=== PATIENT | male | born 1950 | race Caucasian/White ===

== ENCOUNTER 2021-02-18 00:45 | Emergency (ER) | payer MEDICARE, BC, SELFPAY ==
--- NOTE | ~2021-02-18 | XR_ITS ---
EXAMINATION: XR knee RT min 4V DATE: 02/18/2021 01:11 INDICATION: Right knee pain. TECHNIQUE: 4 views of right knee were obtained. COMPARISON: None. FINDINGS: Bone alignment is normal. No fracture. There is mild tricompartmental osteoarthritis. There is a large knee joint effusion. IMPRESSION: 1. Mild right knee osteoarthritis. 2. Large knee joint effusion. Reviewed, dictated and finalized at location A.
[2021-02-18] MEDS: LIDOCAINE HCL 1% LOCAL INJ 20 ML VIAL (01:35)
[2021-02-18 01:46] VITALS: BP 121/98; PULSE 63; RESP 16; TEMP 36.7; O2SAT 97
[2021-02-18] MEDS: KETOROLAC 30 MG/ML VIAL (*BKC) IM (01:47)
--- NOTE | 2021-02-18 02:01 | ED.GENADULT ---
HPI - General Adult General Chief complaint: Extremity Injury, Lower Stated complaint: RIGHT KNEE PAIN Source: patient and family Mode of arrival: ambulatory Limitations: no limitations History of Present Illness HPI narrative: Miles is a 70M with a PMH of COPD, Afib, HLD, BPH and previous knee fracture many years ago that presented to the ED with right knee pain and swelling. Earlier in the day turned and barely twisted his knee but had immediate pain. The pain and swelling have become worse throughout the day. He had no other injuries, fevers, or chills. Related Data Home Medications Medication Instructions Recorded Confirmed apixaban [Eliquis] 5 mg PO BID 02/18/21 02/18/21 fluticasone propionate 1 spray INTRANASAL PRN 02/18/21 02/18/21 levocetirizine 5 mg PO DAILY 02/18/21 02/18/21 lisinopril-hydrochlorothiazide 0.5 tablet PO DAILY 02/18/21 02/18/21 magnesium oxide 400 mg PO BID 02/18/21 02/18/21 nebivolol [Bystolic] 5 mg PO DAILY 02/18/21 02/18/21 simvastatin 20 mg PO DAILY 02/18/21 02/18/21 tamsulosin 0.4 mg PO DAILY 02/18/21 02/18/21 tiotropium-olodaterol [Stiolto 2 spray INHALATION DAILY 02/18/21 02/18/21 Respimat] Allergies Allergy/AdvReac Type Severity Reaction Status Date / Time No Known Allergies Allergy Verified 02/18/21 02:00 Review of Systems Constitutional: Constitutional: Reports no additional constitutional complaints, Denies chills and Denies fever(s) Eyes: Eyes: Reports no additional eye complaints ENT: Reports system reviewed and no additional complaints, except as documented Cardiovascular: Cardiovascular: Reports no additional cardiovascular complaints Respiratory: Respiratory: Reports no additional respiratory complaints Gastrointestinal: Gastrointestinal: Reports no additional gastrointestinal complaints Genitourinary: Genitourinary: Reports no additional male genitourinary complaints Musculoskeletal: Musculoskeletal: Reports as per HPI Integumentary/Breasts: Skin/Breast: Reports system reviewed and no additional complaints, except as docu Neurologic: Reports system reviewed and no additional complaints, except as documented Psychiatric: Psychiatric: Reports no additional psychiatric complaints Endocrine: Endocrine: Reports no additional endocrine complaints Hematologic/Lymphatic: Hematologic/Lymphatic: Reports no additional hematologic/lymphatic complaints Allergic/Immunologic: Allergic/Immunologic: Reports no additional allergic/immunologic complaints Exam Const: General: no acute distress and alert Orientation/consciousness: patient oriented x3 Limitations: No altered mental status HENMT: Head: normal to inspection Other: atraumatic Eyes: Conjunctivae: conjunctivae normal Pupils: Equal, round and reactive pupils present Neck: Neck: normal visual inspection and no lymphadenopathy Chest: Chest palpation & inspection: normal inspection of the chest Resp: Effort & Inspection: normal respiratory effort Cardio: Rate: regular rate Skin: General skin exam: normal color Rashes: no rashes Neuro: General: patient oriented x3, moves all extremities, no focal motor deficits and CN's II-XI intact bilaterally Extrem: Other: Right knee was very swollen and TTP. It had a large ballotable effusion. No varus/valgus laxity. Negative anterior/posterior drawer test. Psych: Mental Status: mental status grossly normal Course Vital Signs Vital signs: Vital Signs Temperature 98.0 F 02/18/21 01:46 Pulse Rate 63 02/18/21 01:46 Respiratory Rate 16 02/18/21 01:46 Blood Pressure 121/98 H 02/18/21 01:46 Pulse Oximetry 97 02/18/21 01:46 Temperature 98.0 F 02/18/21 01:46 Pulse Rate 63 02/18/21 01:46 Respiratory Rate 16 02/18/21 01:46 Blood Pressure 121/98 H 02/18/21 01:46 Pulse Oximetry 97 02/18/21 01:46 Procedures Joint Aspiration/Injection Joint Asp./Inject. 1: Joint Aspiration Date: 02/18/21 Side of body: right Micaela
[2021-02-18 02:05] VITALS: BP 120/89; PULSE 80; RESP 20; O2SAT 98
== END 2021-02-18 02:10 | disposition home or self-care (01) ==
PROVIDERS: Emergency Provider Family Medicine
DX: M25.461 Effusion, right knee (principal)
CPT/HCPCS: 20610; 73564; 96372; 99283; J1885

== ENCOUNTER 2021-03-08 09:42 | Outpatient (RCR) | payer MEDICARE, BC, SELFPAY ==
--- NOTE | 2021-03-08 11:01 | PTOPEVAL ---
Thank you for referring Miles Escamilla to [facility].? The patient is scheduled to be seen for therapy? ____x/week for ___ weeks. Please review, sign, date and return this plan of care ISAEL. I agree with and certify that the following plan of care is medically necessary. Referring Physician Date Admitting Provider: Attending Provider: Kory Edwards, MD Referring Provider: *PT Outpatient Evaluation Start: 03/08/21 07:01 Freq: Status: Active Protocol: Document 03/08/21 09:54 ACR (Rec: 03/08/21 11:01 ACR [id number]) Therapy Assessment Status Assessment Status Assessment Status Evaluation Evaluation Information Problem Diagnosis R knee hematoma Onset 02/15/21 Subjective Information Patient states that he was Query Text:As Reported By Patient/ washing his hands and stepped Family out to the side and heard a loud pop. He states it has gotten progressively worse and went to the ER that night and got 120 cc's of fluid removed and then went to the the MD and got another 80 cc's removed due to all of the swelling. The patient states he is unable to go up and down the stairs or walk for long distances. He states that sometimes his knee feels like it could buckle on him. Patient states that his biggest complaint is not being able to bend his knee. Prior Level of Function Activity Level (Last 3 Months) Occupation retired Hand Dominance Right Activity of Daily Living Ability Independent Indoor/Home Mobility Independent Community Mobility Independent Stairs Ability Independent Functional Cognition (Planning, Shopping Independent , Taking Medications) Cooking Yes Cleaning Yes Laundry Yes Shopping Yes Driving Yes Pain Assessment Timing of Pain Assessment Timing of Pain Assessment Assessment Pain Scale Pain Scale Used Numeric (1 - 10) Self Report Pain Assessment Right Knee(s) Reported Pain Level 0 Greatest Pain Intensity 10 Pain Score Pain Score 0: Self Report Interventions Used Interventions Used By Clinicians Activity or ADL's,Education,
--- NOTE | 2021-04-01 07:56 | PCPTNOTE ---
Patient is a 70 year old male that participated in 2 visits for R knee hematoma. The patient called and would like to be discharged at this time due to his pain. Please refer to the most recent treatment note for discharge summary. Thank you, Junie Nino DPT
== END 2021-03-10 09:19 | disposition home or self-care (01) ==
LOC: CHSPT 09:42
PROVIDERS: Visit Provider Orthopaedic Surgery
DX: S80.01XA Contusion of right knee, initial encounter (principal)
CPT/HCPCS: 97016; 97110; 97161

== ENCOUNTER 2021-08-02 08:56 | Emergency (ER) | payer MEDICARE, SELFPAY ==
--- NOTE | ~2021-08-02 | XR_ITS ---
EXAMINATION: XR chest 1V portable EXAM DATE: 08/02/2021 09:33 INDICATION: Left-sided chest pain, cough, dyspnea on exertion. COPD. TECHNIQUE: Portable AP frontal chest x-ray was obtained. Comparison is made to prior examination from 11/04/16. FINDINGS: There is a dual lead pacemaker/AICD seen with leads projecting over the expected locations of the right atrial appendage and right ventricle. The lungs are hyperinflated which can be seen wit h chronic obstructive pulmonary disease (a clinical diagnosis of functional impairment), but is not d iagnostic of it. Cardiomegaly, pulmonary vascular congestion. Some prominent basilar reticulation which was not eviden t on prior study, could indicate pulmonary edema. Possible CHF exacerbation. No sizable pleural effus ion. No pneumothorax. There are bony degenerative changes. IMPRESSION: 1. Cardiomegaly, congestion and prominent basilar reticulation which could be pulmonary edema. CHF? 2. Chronic hyperinflation. Reviewed, dictated and finalized at location A.
--- NOTE | ~2021-08-02 | CT_ITS ---
EXAMINATION: CT diagnostic chest wo con DATE: 08/02/2021 10:22 INDICATION: chest pain, CHF? CHEST PAIN TECHNIQUE: Computed tomography (CT) of the chest was performed without intravenous contrast. Addition al 3D reconstructions utilizing coronal maximum intensity projection (MIP) were performed. Automated exposure control and iterative reconstruction technique were employed. The dose-length product was 27 0.41 mGy-cm. COMPARISON: None FINDINGS: Moderate emphysema. Smooth septal line thickening and mild groundglass opacities at the bilateral parvez g bases consistent with mild pulmonary edema. Calcified right lower lobe nodules consistent with old granulomatous disease. No pneumonia, pleural effusion or pneumothorax. Mild cardiomegaly. No pericard ial effusion. There is chronic coronary artery calcific location. Aortic valve calcification. Dual-le ad cardiac pacemaker with lead tips at the right atrium and apex of the right ventricle. Thoracic aor ta is normal in caliber. No pathologically enlarged thoracic lymphadenopathy. Moderate thoracic spond ylosis. IMPRESSION: 1. Congestive heart failure with cardiomegaly and mild pulmonary edema at the lung bases. 2. Moderate emphysema. Reviewed, dictated and finalized at location A. IMPRESSION: 1. Congestive heart failure with cardiomegaly and mild pulmonary edema at the l samantha bases. 2. Moderate emphysema.
[2021-08-02 08:56] VITALS: BP 156/98; PULSE 63; RESP 18; TEMP 36.6; O2SAT 99
--- NOTE | 2021-08-02 08:59 | ECG_ITS ---
Measurements Intervals [place] Rate: 65 P: GA: 0 QRS: -77 QRSD: 190 T: 102 QT: 496 QTc: 519 Interpretive Statements ELECTRONIC VENTRICULAR PACEMAKER ATRIAL AND VENTRICULAR PREMATURE COMPLEXES BASELINE ARTIFACT- I, II, III, AVR, AVL, AVF NO FURTHER INTERPRETATION IS POSSIBLE BORDERLINE ECG Electronically Signed On 08-02-2021 14:49:55 CDT by Velasquez Nava D.O.
[2021-08-02 09:00] VITALS: PULSE 63
[2021-08-02 09:12] LABS: Basophils Absolute Auto 0.03 K/mm3 (0.00-0.10); Basophils Percent Auto 0.4 % (0.0-1.0); Eosinophils Absolute Auto 0.04 K/mm3 (0.02-0.50); Eosinophils Percent Auto 0.6 % (1.0-6.0); Hematocrit 46.8 % (37.0-46.0); Hemoglobin 15.4 g/dL (12.4-15.3); Immature Granulocyte Absolute 0.07 K/mm3 (0.00-0.00); Lymphocytes Absolute Auto 1.37 K/mm3 (1.10-4.50); Lymphocytes Percent Auto 19.2 % (18.0-42.0); Mean Corpuscular HGB Conc 32.9 g/dL (32.0-36.0); Mean Corpuscular Volume 91.1 fL (78.0-102.0); Mean Platelet Volume 9.8 fl (8.7-11.0); Monocytes Percent Auto 8.4 % (2.0-11.0); Neutrophils Percent Auto 70.4 % (50.0-70.0); Platelet Count Result 172 K/mm3 (150-420); Red Blood Count 5.14 M/mm3 (4.70-6.10); Red Cell Distribution Width 14.7 % (11.6-14.4); White Blood Count 7.2 K/mm3 (4.8-10.8)
[2021-08-02] MEDS: NITROGLYCERIN SL 0.4 MG TABLET SUBLINGUAL (09:23)
[2021-08-02] MEDS: ASPIRIN 325 MG ENTERIC TABLET PO (09:23)
[2021-08-02 09:31] LABS: Lactic Acid Reflex 1.2 mmol/L (0.4-2.0)
[2021-08-02 09:35] LABS: Alanine Aminotransferase 33 U/L (16-63); Albumin Level 4.4 g/dL (3.4-5.0); Alkaline Phosphatase 73 U/L (46-116); Anion Gap 10 mmol/L (8-16); Aspartate Amino Transferase 27 U/L (15-37); Bilirubin,Total 1.1 mg/dL (0.00-1.00); Blood Urea Nitrogen 14 mg/dL (7-18); Calcium 9.4 mg/dL (8.5-10.1); Carbon Dioxide 28 mmol/L (21-32); Chloride 105 mmol/L (98-108); Estimated Glomerular Filt Rate > 60; Glucose 105 mg/dL (70-99); NT Pro B Type Natriuretic Pept 5808 pg/mL (0-125); Osmolality Calculated 296 mOsm/kg (285-295); Potassium 4.2 mmol/L (3.5-5.1); Sodium 143 mmol/L (136-145); Total Protein 7.2 g/dL (6.4-8.2)
--- NOTE | 2021-08-02 09:44 | ED.CHESTPAIN ---
HPI - Chest Pain General Chief Complaint: Chest Pain Stated Complaint: CHEST PAIN Time Seen by Provider: 08/02/21 08:59 Source: patient, family and RN notes reviewed Mode of arrival: ambulatory Limitations: no limitations History of Present Illness complaint: chest pain Pertinent past history: other (pacemaker for atrial fibrillation; known COPD) Onset (ago): hour(s) (4) Timing of current episode: constant Prior episodes: Yes Onset: during rest Pain location: left chest Pain radiation: none Severity: moderate Pain scale (0-10): 8 Quality: aching and dull Relieving factors: nothing Exacerbating factors: nothing Associated symptoms: dyspnea Treatment prior to arrival: none Risk Factors Coronary artery disease risk factors: smoking history and hypertension Thoracic aortic dissection risk factors: longstanding hypertension Related Data Home Medications Medication Instructions Recorded Confirmed apixaban [Eliquis] 5 mg PO BID 02/18/21 08/02/21 fluticasone propionate 1 spray INTRANASAL PRN 02/18/21 08/02/21 levocetirizine 5 mg PO DAILY 02/18/21 08/02/21 lisinopril-hydrochlorothiazide 0.5 tablet PO DAILY 02/18/21 08/02/21 magnesium oxide 400 mg PO BID 02/18/21 08/02/21 nebivolol [Bystolic] 5 mg PO DAILY 02/18/21 08/02/21 simvastatin 20 mg PO DAILY 02/18/21 08/02/21 tamsulosin 0.8 mg PO DAILY 02/18/21 08/02/21 tiotropium-olodaterol [Stiolto 2 spray INHALATION DAILY 02/18/21 08/02/21 Respimat] albuterol sulfate [Ventolin HFA] 2 puff INHALATION QID PRN 08/02/21 08/02/21 multivit with min-folic acid 1 tablet PO DAILY 08/02/21 08/02/21 [Adult One Daily Multivitamin] Allergies Allergy/AdvReac Type Severity Reaction Status Date / Time No Known Allergies Allergy Verified 02/18/21 02:00 Review of Systems Review of Systems: All systems reviewed & are unremarkable except as noted in HPI and below Cardiovascular: Cardiovascular: Reports chest pain PMFSH Past Medical History Medical History Atrial fibrillation Exam Const: General: no acute distress and alert Nutritional Appearance: well nourished Orientation/consciousness: patient oriented x3 HENMT: Head: normal to inspection Ears: external ears normal and TM's normal bilaterally General nose exam: Normal external nose present and Normal nares present Mouth: Yes moist mucous membranes Throat: posterior oropharynx normal Eyes: Conjunctivae: conjunctivae normal Pupils: Equal, round and reactive pupils present EOM: EOMs intact bilaterally Neck: Neck: normal visual inspection and no lymphadenopathy Chest: Chest palpation & inspection: normal inspection of the chest Resp: Effort & Inspection: normal respiratory effort Auscultation: crackles and rhonchi Cardio: Rate: regular rate Rhythm: regular rhythm GI: Auscultation: normal bowel sounds : General: Yes bladder normal to palpation and Yes no CVA tenderness Male General Exam: Yes normal external exam Testes: Testes normal Back/Spine/Pelvis: Back: no CVA tenderness Skin: General skin exam: normal color Rashes: no rashes Neuro: General: patient oriented x3, moves all extremities, no meningeal signs, no focal motor deficits and CN's II-XI intact bilaterally Cranial nerves: Yes Nystagmus not present Extrem: General: normal to inspection and no pedal edema Psych: Mental Status: mental status grossly normal Course Course Emergency Course: Pt had less chest pain. Reevaluation(s) Date: 08/02/21 Time: 09:51 Vital Signs Vital signs: Vital Signs Temperature 36.6 C 08/02/21 08:56 Pulse Rate 63 08/02/21 08:56 Respiratory Rate 18 08/02/21 08:56 Blood Pressure 156/98 H 08/02/21 08:56 Pulse Oximetry 99 08/02/21 08:56 Temperature 36.6 C 08/02/21 08:56 Pulse Rate 60 08/02/21 10:49 Respiratory Rate 18 08/02/21 10:49 Blood Pressure 156/98 H 08/02/21 08:56 Pulse Oximetry 99 08/02/21 10:49 [facility] - Chest Pa
[2021-08-02 10:40] VITALS: PULSE 60; RESP 18; O2SAT 99
[2021-08-02] MEDS: ALBUTEROL SULFATE (*SP) INHALER 2 PUFF INHALATION (10:45)
[2021-08-02] MEDS: FUROSEMIDE INJ 100 MG/10 ML VIAL 80 MG IV PUSH (10:45)
[2021-08-02 10:49] VITALS: PULSE 60; RESP 18; O2SAT 99
[2021-08-02 11:30] LABS: Troponin I 16.4 ng/L (0.00-60.4)
--- NOTE | 2021-08-02 11:39 | PC.NURSE ---
patient tobacco dipper, Dr. Ya, contacted for consult at this time. Awaiting call back
--- NOTE | 2021-08-02 11:41 | PC.NURSE ---
call out to patients creative manager Dr Ya at 11:35
--- NOTE | 2021-08-02 12:21 | PC.NURSE ---
cardiology return call at this time, spoke with AMRIT Haq
[2021-08-02 12:44] VITALS: BP 156/93; PULSE 63; RESP 17; O2SAT 97
== END 2021-08-02 12:50 | disposition home or self-care (01) ==
PROVIDERS: Emergency Provider Emergency Medicine; PCP Physician Assistant
DX: I50.41 Acute combined systolic (congestive) and diastolic (congestive) heart failure (principal); R07.9 Chest pain, unspecified
CPT/HCPCS: 36415; 71045; 71250; 80053; 83605; 83880; 84484; 85025; 93005; 96374; 99283; 99284; A9270; J1940

== ENCOUNTER 2022-07-19 15:36 | Outpatient (RCR) | payer MEDICARE, SELFPAY | END 2022-08-18 13:15 | disposition home or self-care (01) | DX: J44.9 Chronic obstructive pulmonary disease, unspecified (principal) | CPT/HCPCS: 94625 ==

== ENCOUNTER 2022-12-28 09:23 | Outpatient (CLI) | payer MEDICARE, SELFPAY ==
--- NOTE | ~2022-12-28 | CT_ITS ---
EXAMINATION: CT sinus wo con DATE: 12/28/2022 09:58 INDICATION: Nasal drip. Chronic sinusitis. TECHNIQUE: Computed tomography (CT) of the paranasal sinuses was performed without contrast. Iterativ e reconstruction technique was employed. Exam dose: 293.24 mGy-cm total exam DLP. COMPARISON: None FINDINGS: There is leftward bowing of the anterior portion of the nasal septum and rightward bowing o f the more posterior aspect. There is sheela bullosa and intralamellar cell of both middle nasal turbinates. Bilateral nasal turbi dasia soft tissue swelling. There is soft tissue thickening at the maxillary ostium bilaterally. There is mild soft tissue thicke latoya of the left infundibulum. There is mild mucosal periosteal thickening in the inferomedial frontal sinuses. There is mild soft t issue thickening of the ethmoid air cells and minimal mucoperiosteal thickening of the maxillary sinu ses. The sphenoid sinuses are clear. No air-fluid levels are noted within the paranasal sinuses. The mastoid air cells are normally developed and aerated bilaterally. IMPRESSION: Nasal septal bowing leftward anteriorly and rightward posteriorly Bilateral middle nasal turbinate sheela bullosa and intralamellar cell Bilateral maxillary ostium soft tissue thickening, mild soft tissue thickening of left infundibulum Mild mucoperiosteal thickening of the inferomedial frontal sinuses, ethmoid air cells and maxillary s inuses Reviewed, dictated and finalized at Location [facility]. Reviewed, dictated and finalized at location B. OWS ADMIN IMPRESSION: Nasal septal bowing leftward anteriorly and rightward posteriorly Bilateral middle nasal turbinate sheela bullosa and intralamellar cell Bilateral maxillary ostium soft tissue thickening, mild soft tissue thickening of left infundibulum Mild mucoperiosteal thickening of the inferomedial frontal sinuses, ethmoid air cells and maxillary sinuses
== END 2022-12-28 09:24 | disposition home or self-care (01) ==
LOC: CHSIMG 09:25
PROVIDERS: PCP Physician Assistant
DX: J34.89 Other specified disorders of nose and nasal sinuses (principal); J34.2 Deviated nasal septum; J32.8 Other chronic sinusitis
CPT/HCPCS: 70486

== ENCOUNTER 2023-04-16 13:52 | Emergency (ER) | payer MEDICARE, SELFPAY ==
[2023-04-16] VITALS (10 sets, daily range): BP systolic 142–151; BP diastolic 85–107; PULSE 60–63; RESP 16–20; TEMP 36.6; O2SAT 95–98
--- NOTE | ~2023-04-16 | CT_ITS ---
EXAMINATION: CT brain wo con DATE: 04/16/2023 14:03 INDICATION: Slurred speech, left hemiparesis TECHNIQUE: Computed tomography (CT) of the head was performed without intravenous contrast. The mA wa s adjusted according to patient size. Iterative reconstruction technique was employed. Exam dose: 68 1.00 mGy-cm total exam DLP. COMPARISON: None FINDINGS: There is intracranial cerebral atherosclerosis. There is nonspecific diminished attenuation of the cerebral white matter, likely due to chronic small vessel ischemic changes. No intracranial mass lesion or hemorrhage, midline shift or mass effect is evident. No subdural or epidural hematoma. The paranasal sinuses and mastoid air cells are normally developed and aerated. No fracture or bone destruction of the cranial vault. IMPRESSION: Cerebral atherosclerosis and chronic small vessel ischemic changes of the cerebral white matter No acute intracranial finding Dr. Borjas telephoned the report on 04/16/2023 [address] Mehta at the emergency room Reviewed, dictated and finalized at Location [facility]. Reviewed, dictated and finalized at location A.
--- NOTE | 2023-04-16 13:56 | ED.AMS ---
HPI - Altered Mental Status General Stated Complaint: stroke Time Seen by Provider: 04/16/23 13:56 Source: patient and EMS Mode of arrival: EMS Limitations: language barrier and altered mental status History of Present Illness HPI narrative: patient was well before taking a nap at noon time he woke up 15 20 minutes ago with slurred speech left facial weakness and flaccid left side. Brought by EMS. Blood sugar was normal blood pressure 176/50 pacemaker be 68 beats per minute O2 sat on room air 92-94% history of COPD and hypertension. Has a history of AAA which was repaired. History of AFib on Eliquis and has been taking this regularly. no history of strokes in the past. patient was previously well without any complaints. Patient denies any chest pain or difficulty breathing. Denies any pain. denies any rash or itching shortness of breath any pain nausea vomiting problems eating or drinking stooling or voiding Related Data Home Medications Medication Instructions Recorded Confirmed apixaban 5 mg tablet (Eliquis) 5 mg PO BID 02/18/21 08/02/21 fluticasone propionate 50 1 spray intranasal PRN 02/18/21 08/02/21 mcg/actuation nasal spray,suspension levocetirizine 5 mg tablet 5 mg PO DAILY 02/18/21 08/02/21 lisinopril 20 0.5 tablet PO DAILY 02/18/21 08/02/21 mg-hydrochlorothiazide 12.5 mg tablet magnesium oxide 400 mg (241.3 mg 400 mg PO BID 02/18/21 08/02/21 magnesium) tablet nebivolol 2.5 mg tablet (Bystolic) 5 mg PO DAILY 02/18/21 08/02/21 simvastatin 20 mg tablet 20 mg PO DAILY 02/18/21 08/02/21 tamsulosin 0.4 mg capsule 0.8 mg PO DAILY 02/18/21 08/02/21 tiotropium 2.5 mcg-olodaterol 2.5 2 spray inhalation DAILY 02/18/21 08/02/21 mcg/actuation mist for inhalation (Stiolto Respimat) albuterol sulfate 90 mcg/actuation 2 puff inhalation QID PRN 08/02/21 08/02/21 aerosol inhaler (Ventolin HFA) Shortness Of Breath multivitamin with minerals-folic 1 tablet PO DAILY 08/02/21 08/02/21 acid 0.4 mg tablet Allergies Allergy/AdvReac Type Severity Reaction Status Date / Time No Known Allergies Allergy Verified 02/18/21 02:00 Review of Systems Review of Systems: All systems reviewed & are unremarkable except as noted in HPI and below ( HPI) PMFSH Past Medical History Medical History Atrial fibrillation Exam Const: General: alert Nutritional Appearance: well nourished Orientation/consciousness: patient oriented x3 Limitations: physical limitations Other: Slurred speech HENMT: Head: normal to inspection Ears: external ears normal Other: left facial droop Eyes: EOM: EOM not intact bilaterally ( eyes deviated to the right) Neck: Neck: normal visual inspection, no lymphadenopathy and no meningeal signs Chest: Chest palpation & inspection: normal inspection of the chest Resp: Effort & Inspection: normal respiratory effort Cardio: Rate: regular rate Rhythm: regular rhythm Heart sounds: no murmurs GI: Inspection: non-distended GI Palp: Yes Soft to palpation, No Tenderness to palpation present (GI), No Guarding due to palpation present (GI) and No Rigid due to palpation Auscultation: normal bowel sounds Back/Spine/Pelvis: Back: no CVA tenderness Skin: General skin exam: normal color Rashes: no rashes Wounds: no wounds Neuro: Other: rightward gaze rightward head tilt dense left hemiparesis left-sided weakness. Inattention the left side. NIH scale 19 on admission Extrem: General: normal to inspection Psych: Mental Status: mental status grossly normal Affect: normal affect Attitude: cooperative MDM - Altered Mental Status MDM Narrative Medical decision making narrative: Independent Historian: EMS Differential Dx includes but not limited to: stroke TIA Medications were Reviewed: patient is on Eliquis Medications, treatment, ED course: Independently Interpreted by me: CT the head without contrast show
--- NOTE | 2023-04-16 13:58 | ECG_ITS ---
Measurements Intervals [place] Rate: 62 P: MD: 0 QRS: -80 QRSD: 162 T: 103 QT: 466 QTc: 476 Interpretive Statements ELECTRONIC VENTRICULAR PACEMAKER PREMATURE VENTRICULAR CONTRACTION ABNORMAL ECG COMPARED TO ECG 08/02/2021 09:01:49 NO SIGNIFICANT CHANGES Electronically Signed On 04-17-2023 10:44:04 CDT by Pola Markham M.D.
[2023-04-16 14:06] LABS: Hematocrit 43.9 % (37.0-46.0); Mean Corpuscular HGB Conc 34.2 g/dL (32.0-36.0); Mean Corpuscular Hemoglobin 31.4 pg (27.0-31.0); Mean Platelet Volume 9.6 fl (8.7-11.0); Platelet Count Result 187 K/mm3 (150-420); Red Blood Count 4.77 M/mm3 (4.70-6.10); Red Cell Distribution Width 13.7 % (11.6-14.4); White Blood Count 7.5 K/mm3 (4.8-10.8)
[2023-04-16 14:15] LABS: Glucose Point of Care 93 mg/dl (65-105)
[2023-04-16 14:17] LABS: Partial Thromboplastin Time 28.2 SEC (23.90-30.70); Prothrombin Time 11.1 Seconds (9.50-12.10)
[2023-04-16 14:21] LABS: Alanine Aminotransferase 31 U/L (16-63); Alkaline Phosphatase 76 U/L (46-116); Anion Gap 8 mmol/L (8-16); Aspartate Amino Transferase 28 U/L (15-37); Bilirubin,Total 0.8 mg/dL (0.00-1.00); Blood Urea Nitrogen 17 mg/dL (7-18); Carbon Dioxide 28 mmol/L (21-32); Chloride 106 mmol/L (98-108); Estimated Glomerular Filt Rate 60; Glucose 90 mg/dL (70-99); Osmolality Calculated 295 mOsm/kg (285-295); Potassium 4.1 mmol/L (3.5-5.1); Sodium 142 mmol/L (136-145); Troponin I 15.9 ng/L (0.00-60.4)
--- NOTE | 2023-04-16 15:00 | PC.NURSE ---
1500 ACCESS LINE TOLD US TO HOLD HELICOPTER UNTIL REPORT GIVEN TO ICU CHARGE NURSE
== END 2023-04-16 15:20 | disposition short-term general hospital (02) ==
PROVIDERS: Emergency Provider Emergency Medicine; PCP Physician Assistant
DX: I63.9 Cerebral infarction, unspecified (principal); G81.94 Hemiplegia, unspecified affecting left nondominant side; I48.91 Unspecified atrial fibrillation; J44.9 Chronic obstructive pulmonary disease, unspecified; I10 Essential (primary) hypertension; Z79.01 Long term (current) use of anticoagulants
CPT/HCPCS: 36415; 70450; 80053; 82948; 84484; 85027; 85610; 85730; 93005; 99285

== ENCOUNTER 2023-07-11 22:29 | Emergency (ER) | payer MEDICARE, SELFPAY ==
--- NOTE | ~2023-07-11 | CT_ITS ---
EXAMINATION: CT abdomen pelvis w con DATE: 07/11/2023 23:50 INDICATION: Fall. Right abdominal pain. Hematuria. TECHNIQUE: Computed tomography (CT) of the abdomen and pelvis was performed with 100 CC Omnipaque 350 intravenous contrast. Automated exposure control and iterative reconstruction technique were employe d. Exam dose: 801.63 mGy-cm total exam DLP. COMPARISON: 08/02/2021 CT chest FINDINGS: New approximately 2.7 x 3.9 cm soft tissue opacity at the posterior right lung base, right lower lobe, which may be round atelectasis or consolidation, less likely pulmonary malignancy. There is patchy infiltrate and atelectasis in both lower lobes. Prominent emphysematous changes of the lungs. Cardiomegaly. Triple lead pacemaker leads. No pericardial or pleural effusion. The liver, gallbladder, bile ducts, spleen, pancreas and pancreatic duct as well as the adrenal gland s are unremarkable. Nonspecific 6.7 mm and 6 mm hypoattenuating lesions of the right kidney., Possibly a cyst. Status post left nephrectomy Abdominal biiliac arterial graft. No intraperitoneal or retroperitoneal or pelvic mass lesion or adenopathy or ascites is noted. Normal appendix. Mild colonic diverticulosis; no CT evidence of diverticulitis. No bowel obstruction, bowel wall thickening, pneumatosis or intraperitoneal free air is detected. Prostate enlargement. There is prominent thickening of the urinary bladder wall. There is a prominent soft tissue thickening in the posterior urinary bladder area. Prostate or urinary bladder malignancy cannot be excluded on this examination; there is virtually no contrast material in the bladder. Diffuse idiopathic skeletal hyperostosis of the thoracic spine. There is extensive heterotopic ossification the posterior aspect of the left hip. Bilateral hip osteoarthritis. Osteopenia. IMPRESSION: Prominent asymmetric thickening of the urinary bladder wall with particularly prominent soft tissue thickening posteroinferiorly. Urinary bladder or prostate malignancy cannot be excluded Prostate enlargement Normal appendix Diverticulosis of the colon Status post left nephrectomy Aortobiiliac femoral graft Possible small right renal cysts; there are no prior CT examinations of the abdomen for comparison. Prominent round atelectasis or consolidation versus less likely pulmonary mass lesion in the posterio r basilar right lower lobe Bilateral lower lobe infiltrate and/atelectasis Emphysema Cardiomegaly, triple lead pacemaker Reviewed, dictated and finalized at [facility]. Reviewed, dictated and finalized at [facility]. IMPRESSION: Prominent asymmetric thickening of the urinary bladder wall with p articularly prominent soft tissue thickening posteroinferiorly. Urinary bladder or prostate malignancy cannot be excluded Prostate enlargement Normal appendix Diverticulosis of the colon Status post left nephrectomy Aortobiiliac femoral graft Possible small right renal cysts; there are no prior CT examinations of the abd omen for comparison. Prominent round atelectasis or consolidation versus less likely pulmonary mass lesion in the posterior basilar right lower lobe Bilateral lower lobe infiltrate and/atelectasis Emphysema Cardiomegaly, triple lead pacemaker
--- NOTE | ~2023-07-11 | XR_ITS ---
XR hip RT min 2V DATE: 07/11/2023 22:57 INDICATION: Fall. Right hip pain. 3 views TECHNIQUE: 3 views COMPARISON: None FINDINGS: This examination is technically limited. There is osteopenia. There is some irregularity along the lateral aspect of the greater trochanter of uncertain significan ce. Bone detail is not optimal. This may be some heterotopic calcification or ossification. Greater t rochanter fracture is not excluded. Repeat radiographs or CT right hip are recommended for more defin itive evaluation. There appears to be normal alignment at the pubic symphysis and sacroiliac joints. Aortobiiliac graft is noted. IMPRESSION: Limited examination Reviewed, dictated and finalized at [facility]. IMPRESSION: Limited examination
[2023-07-11 22:32] VITALS: BP 117/66; PULSE 76; RESP 20; TEMP 37; O2SAT 88
--- NOTE | 2023-07-11 22:40 | ED.FALL ---
HPI - Fall General Chief Complaint: Fall Stated Complaint: hematuria Time Seen by Provider: 07/11/23 22:31 Source: patient, EMS and RN notes reviewed Mode of arrival: EMS Limitations: no limitations History of Present Illness HPI Narrative: patient states that he fell on his right side. he was sitting on the side of his bed and said that he slid out of the bed onto his right side. He then had an episode of hematuria but he states he did not fall onto his abdomen. He says he has mild pain in his right hip. Status post CVA about 3 months ago. He says he had an episode of hematuria about a month ago. complaint: fall Onset (ago): minute(s) (30) Fall from: out of bed Fall witnessed: no Place fall occurred: intermediate/SNF Loss of consciousness: none Prolonged down time: no Symptoms prior to fall: none Context: history of frequent falls Location of injury - extremities: Right: lower leg (hip) Severity: mild Quality: dull and aching Associated symptoms (after fall): hematuria Related Data Home Medications Medication Instructions Recorded Confirmed cetirizine 10 mg tablet (Zyrtec) 10 mg PO DAILY 04/16/23 04/16/23 fluticasone fur. 100 mcg-umeclid 1 inh inhalation BID 04/16/23 04/16/23 62.5 mcg-vilant 25 mcg inhalat.powder (Trelegy Ellipta) Allergies Allergy/AdvReac Type Severity Reaction Status Date / Time No Known Allergies Allergy Verified 07/11/23 23:12 Review of Systems Review of Systems: All systems reviewed & are unremarkable except as noted in HPI and below PMFSH Past Medical History Medical History (Updated 07/12/23 @ 00:42 by William Florian MD) Atrial fibrillation Chronic pain Constipation by delayed colonic transit COPD (chronic obstructive pulmonary disease) Depression GERD (gastroesophageal reflux disease) Hyperlipidemia Hypertension Stroke Social History Social History Smoking status: Former smoker Exam Const: General: healthy appearing, no acute distress and alert Nutritional Appearance: well nourished Orientation/consciousness: patient oriented x3 Limitations: physical limitations ( Hemiparesis left side) HENMT: Head: normal to inspection Ears: external ears normal Face/Nose/Sinus: Normal external nose present Mouth: Yes moist mucous membranes Eyes: Conjunctivae: conjunctivae normal Pupils: Equal, round and reactive pupils present EOM: EOMs intact bilaterally Neck: Neck: normal visual inspection Resp: Effort & Inspection: normal respiratory effort Auscultation: clear to auscultation bilaterally Cardio: Rate: regular rate Rhythm: abnormal rhythm irregularly irregular GI: GI Palp: Yes Soft to palpation and No Tenderness to palpation present (GI) Auscultation: normal bowel sounds Back/Spine/Pelvis: Cervical Spine: cervical ROM normal Skin: General skin exam: normal color Rashes: no rashes Wounds: no wounds Neuro: General: patient oriented x3 Speech: normal speech Other: flaccid paralysis on the left Extrem: General: no clubbing, cyanosis or edema Right lower extremity: hip/thigh Details: tenderness Location: of the hip (Mild) Location: anteriorly; not over the greater trochanter Psych: Mental Status: mental status grossly normal Affect: normal affect Attitude: cooperative Course Course Emergency Course: Initially straight cath showed significant blood in the urine. Consequently a Morel catheter is placed and CBI was completed until there is just slight pink urine. Vital Signs Vital signs: Vital Signs Temperature 37.0 C 07/11/23 22:32 Pulse Rate 76 07/11/23 22:32 Respiratory Rate 07/11/23 22:32 Blood Pressure 117/66 07/11/23 22:32 Pulse Oximetry 88 L 07/11/23 22:32 Oxygen Delivery Nasal Cannula 07/11/23 22:32 Oxygen Flow Rate 2 07/11/23 22:32 Temperature 37.0 C 07/11/23 22:32 Pulse Rate 76 07/11/23 22:32 Respiratory Rate 20 07/11/23 22:32
[2023-07-11 23:11] LABS: Anion Gap 11 mmol/L (8-16); Blood Urea Nitrogen 18 mg/dL (7-18); Calcium 9.9 mg/dL (8.5-10.1); Carbon Dioxide 27 mmol/L (21-32); Chloride 92 mmol/L (98-108); Estimated Glomerular Filt Rate > 60; Glucose 132 mg/dL (70-99); Osmolality Calculated 273 mOsm/kg (285-295); Potassium 3.8 mmol/L (3.5-5.1); Sodium 130 mmol/L (136-145)
--- NOTE | 2023-07-11 23:17 | PC.NURSE ---
speech therapist technician at bedside for straight catheterization in attempt to collect clean urine specimen.
[2023-07-11 23:18] VITALS: O2SAT 93
[2023-07-11 23:36] LABS: Bilirubin Urine Negative (Negative); Blood Urine 3+ (Negative); Glucose Urine UA Negative (Negative); Ketones Urine Trace (Negative); Leukocyte Esterase Ur Negative LEU/UL (Negative); Nitrate Urine Positive (Negative); Protein Urine 3+ (Negative); pH Urine 6.5 (5.0-8.0)
[2023-07-11 23:41] LABS: Add Urine Microscopic? YES; Appearance Urine Cloudy (Clear); Bacteria Urine Unable to determine /hpf; Color Urine Red (Yellow); RBC Urine >100 /hpf (0-2); Squamous Epithelial Cell Urine Unable to determine /hpf (Few); WBC Urine Unable to determine /hpf (0-3)
--- NOTE | 2023-07-11 23:45 | PC.NURSE ---
patient in CT at this time.
[2023-07-12 01:30] VITALS: BP 113/71; PULSE 78; RESP 19; TEMP 37; O2SAT 93
[2023-07-12] MEDS: CEPHALEXIN 500 MG CAPSULE PO (01:59)
--- NOTE | 2023-07-12 02:04 | PC.NURSE ---
patient medicated. RN spent greater than 1 1/2 hours at patient bedside during Morel catheter insertion and bladder irrigation process.
--- NOTE | 2023-07-14 12:14 | PC.NURSE ---
final urine culture report, no growth, no further treatment or action needed at this time.
== END 2023-07-12 02:48 ==
PROVIDERS: Emergency Provider Emergency Medicine; PCP Family Medicine
DX: N39.0 Urinary tract infection, site not specified (principal); S70.01XA Contusion of right hip, initial encounter; R31.0 Gross hematuria; I48.91 Unspecified atrial fibrillation; J44.9 Chronic obstructive pulmonary disease, unspecified; I10 Essential (primary) hypertension; E78.5 Hyperlipidemia, unspecified; Z86.73 Personal history of transient ischemic attack (TIA), and cerebral infarction without residual deficits; W06.XXXA Fall from bed, initial encounter; Y92.129 Unspecified place in nursing home as the place of occurrence of the external cause
CPT/HCPCS: 36415; 73502; 74177; 80048; 81001; 87086; 99284; A9270; Q9967

== ENCOUNTER 2023-07-13 16:20 | Emergency (ER) | payer MEDICARE, SELFPAY ==
[2023-07-13] VITALS (17 sets, daily range): BP systolic 92–138; BP diastolic 55–85; PULSE 60–68; RESP 18–20; TEMP 36.4–36.5; O2SAT 93–100
--- NOTE | 2023-07-13 16:54 | ECG_ITS ---
Measurements Intervals [place] Rate: 61 P: PA: 0 QRS: -57 QRSD: 113 T: 266 QT: 420 QTc: 426 Interpretive Statements ELECTRONIC VENTRICULAR PACEMAKER WITH INHIBITION LEFT ANTERIOR FASCICULAR BLOCK ST-T WAVE ABNORMALITY IN INFERIOR LEADS- CONSIDER ISCHEMIA NO FURTHER INTERPRETATION IS POSSIBLE ABNORMAL ECG COMPARED TO ECG 04/16/2023 14:07:07 LEFT ANTERIOR FASCICULAR BLOCK NOW PRESENT ST-T WAVE ABNORMALITY NOW PRESENT Electronically Signed On 07-13-2023 18:54:58 CDT by Velasquez Nava D.O.
[2023-07-13] MEDS: SODIUM CHLORIDE 0.9% IV 1,000 ML 999 ML IV CONT ×2 (17:08→18:31)
[2023-07-13 17:29] LABS: Basophils Absolute Auto 0.04 K/mm3 (0.00-0.10); Basophils Percent Auto 0.4 % (0.0-1.0); Eosinophils Absolute Auto 0.23 K/mm3 (0.02-0.50); Eosinophils Percent Auto 2.2 % (1.0-6.0); Hematocrit 34.8 % (37.0-46.0); Hemoglobin 11.4 g/dL (12.4-15.3); Immature Granulocyte Absolute 0.06 K/mm3 (0.00-0.00); Immature Granulocyte Percent A 0.6 % (0.0-0.0); Lymphocytes Percent Auto 10.3 % (18.0-42.0); Mean Corpuscular HGB Conc 32.8 g/dL (32.0-36.0); Mean Corpuscular Hemoglobin 28.5 pg (27.0-31.0); Mean Platelet Volume 9.2 fl (8.7-11.0); Monocytes Absolute Auto 0.98 K/mm3 (0.10-0.90); Monocytes Percent Auto 9.2 % (2.0-11.0); Neutrophils Absolute Auto 8.3 K/mm3 (1.7-7.2); Neutrophils Percent Auto 77.3 % (50.0-70.0); Platelet Count Result 317 K/mm3 (150-420); Red Cell Distribution Width 14.4 % (11.6-14.4); White Blood Count 10.7 K/mm3 (4.8-10.8)
[2023-07-13 17:44] LABS: INR 1.1; Partial Thromboplastin Time 34.7 SEC (23.90-30.70); Prothrombin Time 12.1 Seconds (9.50-12.10)
[2023-07-13 17:48] LABS: Lactic Acid Reflex 2.3 mmol/L (0.4-2.0)
[2023-07-13 17:57] LABS: Alanine Aminotransferase 26 U/L (16-63); Albumin Level 3.1 g/dL (3.4-5.0); Alkaline Phosphatase 114 U/L (46-116); Anion Gap 11 mmol/L (8-16); Aspartate Amino Transferase 16 U/L (15-37); Bilirubin,Total 0.4 mg/dL (0.00-1.00); Blood Urea Nitrogen 16 mg/dL (7-18); Calcium 9.4 mg/dL (8.5-10.1); Carbon Dioxide 26 mmol/L (21-32); Chloride 97 mmol/L (98-108); Estimated CRCL calculation 49 ml/min; Estimated Glomerular Filt Rate 51; Glucose 103 mg/dL (70-99); Osmolality Calculated 279 mOsm/kg (285-295); Potassium 3.3 mmol/L (3.5-5.1); Sodium 134 mmol/L (136-145)
[2023-07-13 17:59] LABS: Appearance Urine Clear (Clear); Bilirubin Urine Negative (Negative); Blood Urine 3+ (Negative); Glucose Urine UA Trace (Negative); Ketones Urine 1+ (Negative); Leukocyte Esterase Ur 2+ LEU/UL (Negative); Nitrate Urine Positive (Negative); Protein Urine 3+ (Negative); Specific Grav Ur 1.015 (1.010-1.020); Urobilinogen Urine >=8.0 mg/dL (0.2-1.0); pH Urine 6.5 (5.0-8.0)
[2023-07-13 18:12] LABS: Add Urine Microscopic? YES; Color Urine Dark Brown (Yellow); RBC Urine >75 /hpf (0-2)
[2023-07-13 18:13] LABS: Bacteria Urine Trace /hpf; CRP 3.2 mg/dL (0.0-0.9); Squamous Epithelial Cell Urine None seen /hpf (Few); WBC Urine >75 /hpf (0-3)
[2023-07-13 18:14] LABS: NT Pro B Type Natriuretic Pept 917 pg/mL (0-125)
--- NOTE | 2023-07-13 18:24 | ED.MALEGU ---
HPI - Male Genitourinary General Chief complaint: Urogenital-Male Stated complaint: blood in urine Time Seen by Provider: 07/13/23 16:45 Source: patient and family Mode of arrival: wheelchair History of Present Illness HPI Narrative: this is a 72-year-old [facility] with a [facility], patient was seen in the ER 2 days ago with similar complaint and was treated for urinary tract infection and had a Morel placed and sent back to the [facility] facility. The patient and family were concerned that there was continuous bleeding in the Morel bag and was brought to the emergency department. The patient is alert oriented currently no complaints other than gross hematuria there is no fever chills no suprapubic tenderness no flank pain no fever chills no chest pain. Patient has a significant history of atrial fibrillation in is on apixaban, has a history of stroke, hypertension history of BPH. Spoke to hospitalist at [facility] that accepted patient for transfer and Urology is in agreement. Onset (ago): day(s) Duration: constant Related Data Home Medications Medication Instructions Recorded Confirmed cetirizine 10 mg tablet (Zyrtec) 10 mg PO DAILY 04/16/23 07/13/23 fluticasone fur. 100 mcg-umeclid 1 inh inhalation BID 04/16/23 07/13/23 62.5 mcg-vilant 25 mcg inhalat.powder (Trelegy Ellipta) umeclidinium 62.5 mcg/actuation 1 inh inhalation DAILY 07/13/23 07/13/23 blister powder for inhalation (Incruse Ellipta) Allergies Allergy/AdvReac Type Severity Reaction Status Date / Time No Known Allergies Allergy Verified 07/13/23 16:41 Review of Systems Review of Systems: All systems reviewed & are unremarkable except as noted in HPI and below PMFSH Past Medical History Medical History Atrial fibrillation Chronic pain Constipation by delayed colonic transit COPD (chronic obstructive pulmonary disease) Depression GERD (gastroesophageal reflux disease) Hyperlipidemia Hypertension Stroke Social History Social History Smoking status: Former smoker Exam Const: General: no acute distress and ill appearing Limitations: no limitations Eyes: Conjunctivae: conjunctivae normal Pupils: Equal, round and reactive pupils present Neck: Neck: normal visual inspection Chest: Chest palpation & inspection: normal inspection of the chest Resp: Effort & Inspection: normal respiratory effort Auscultation: clear to auscultation bilaterally Cardio: Rate: regular rate Rhythm: abnormal rhythm GI: GI Palp: Yes Soft to palpation : General: Yes Bladder palpation abnormal and Yes no CVA tenderness Male General Exam: Yes normal external exam Urinary Catheter: Urinary Catheter: patent and draining, urine red and urine with clots Back/Spine/Pelvis: Back: no CVA tenderness Skin: General skin exam: normal color Rashes: no rashes Wounds: no wounds Neuro: General: patient oriented x3, moves all extremities and no meningeal signs Extrem: General: normal to inspection Psych: Mental Status: mental status grossly normal Affect: normal affect Course Course Emergency Course: patient had a gross hematuria and a Morel catheter in place which does appear to have gross blood the patient was seen 2 days ago and was sent to the [facility] with p.o. antibiotics. The patient had his Morel catheter replaced and continued to have gross hematuria with clots. Patient appears comfortable initially his vital signs pressure was 93/55, patient received a L fluids and blood pressure 113/69 currently patient is afebrile with O2 sat 97%. Labs were reviewed in his H&H had dropped slightly back in May it was 12 and 37 respectively and currently his H&H is 11 and 34. Patient has a lactic acid of 2.3 and a CRP of 3.2 urine shows positive nitrates and positive leukocytes with gross blood. Patient had CT s
[2023-07-13] MEDS: KETOROLAC 15 MG/ML VIAL (*BKC) IV PUSH (18:31)
--- NOTE | 2023-07-13 18:47 | PC.NURSE ---
On 07/13/23, the student, [angel aguilar ], provided care and completed [facility] on this patient. I have reviewed the student's documentation and agree with the findings.
--- NOTE | 2023-07-13 18:59 | PC.NURSE ---
[facility] notifed of pt being transfered to [facility]
--- NOTE | 2023-07-13 19:09 | PC.NURSE ---
Patient report received from MINDI Burr. Patient given warm blanket per request.
[2023-07-13 20:26] LABS: Reflex Lactic Acid Yes or No Add Lactic
--- NOTE | 2023-07-13 20:34 | PC.NURSE ---
report called to MINDI Thrasher at 2030.
[2023-07-13] MEDS: SODIUM CHLORIDE 0.9% IV 1,000 ML 150 ML (21:46)
--- NOTE | 2023-07-16 13:36 | PC.NURSE ---
preliminary urine culture report reviewed. 10-49,000 enterococcus found. pt was transferred to [facility] during this visit. charge nurse at [facility] contacted. pt was discharged yesterday. discharged with rx for cipro. erp reviewed and states this abx is appropriate.
--- NOTE | 2023-07-17 16:47 | PC.NURSE ---
Final urine culture report. Per discharge papers from [facility], patient was last put on cephalexin 500mg 1 po tid x7 days starting 07/12/2023. Per ERP Dr. Neely no change needed.
--- NOTE | 2023-07-19 13:54 | PC.NURSE ---
FINAL BLOOD CULTURE RESULTS X2: NO GROWTH AFTER 5 DAYS. NO ACTION NEEDED.
== END 2023-07-13 21:51 | disposition short-term general hospital (02) ==
PROVIDERS: Emergency Provider Emergency Medicine; PCP Family Medicine
DX: R31.0 Gross hematuria (principal); J44.9 Chronic obstructive pulmonary disease, unspecified; I48.91 Unspecified atrial fibrillation; E78.5 Hyperlipidemia, unspecified; Z79.899 Other long term (current) drug therapy; Z87.891 Personal history of nicotine dependence; Z86.73 Personal history of transient ischemic attack (TIA), and cerebral infarction without residual deficits; Z79.01 Long term (current) use of anticoagulants
CPT/HCPCS: 36415; 80053; 81001; 83605; 83880; 85025; 85610; 85730; 86140; 87040; 87077; 87086; 87088; 87186; 93005; 96361; 96374; 99285; J1885; J7030

== ENCOUNTER 2023-07-13 23:36 | Inpatient (IN) | payer MEDICARE, SELFPAY ==
[2023-07-13 22:30] VITALS: BP 119/67; PULSE 58; RESP 18; TEMP 36.5; O2SAT 97; BMI 22.1
--- NOTE | 2023-07-13 22:34 | ADMGEN ---
This patient, Miles Escamilla, was admitted to Medical Room 345-. Patient/family oriented to hospital policies and general routines including ID bracelet, bed and alarms, visiting hours, pain management, procedures, bathroom and other care routines, personal items, smoking policy, room service/diet, and visiting hours. Information on how to activate the Rapid Response Team has been discussed. Patient/Family are encouraged to report perceived risks to care and to ask questions if they do not understand what they are told or what they should do.
--- NOTE | 2023-07-13 23:20 | PM.IMHP ---
H&P: HPI History of Present Illness Date/Time: 07/13/23 23:20 Chief Complaint: Patient sent from the [facility] to our hospital as a direct admit for hematuria Narrative: He is a very pleasant gentleman with chronic multiple medical issues, who was admitted in [facility] with falls. He was transferred to rehab where a Morel was placed. The nurse in the rehab noticed blood in the Morel and the patient was sent to the ER for evaluation, back at [facility], who reached out to our hospital for direct admission and transfer for urological evaluation. I saw and evaluated the patient at the bedside upon arrival. He is not actively bleeding anymore but concerned about having recurrent bleeding. We will start CBI, order labs and monitor him closely on the floor. He will be evaluated by Urology in the morning. Review of Systems Review of Systems: he denied any chest pain, palpitations, fever rigor chills, nausea vomiting, dizziness or loss of consciousness. All systems reviewed & are unremarkable except as noted in HPI and below PMFSH Past Medical History Medical History (Updated 07/13/23 @ 23:32 by Mk Anne MD) Atrial fibrillation Chronic pain Constipation by delayed colonic transit COPD (chronic obstructive pulmonary disease) CVA, old, cognitive deficits Depression GERD (gastroesophageal reflux disease) Hyperlipidemia Hypertension Stroke Social History Social History Smoking status: Former smoker Meds Home Medications and Allergies Home Medications Medication Instructions Recorded Confirmed Type cetirizine 10 mg tablet (Zyrtec) 10 mg PO DAILY 04/16/23 07/13/23 History fluticasone fur. 100 mcg-umeclid 1 inh inhalation BID 04/16/23 07/13/23 History 62.5 mcg-vilant 25 mcg inhalat.powder (Trelegy Ellipta) acetaminophen 325 mg tablet (Mapap 650 mg BYMOUTH Q4H PRN Mild Pain 06/12/23 07/13/23 Rx (acetaminophen)) (1-3) Or Fever #0 tabs albuterol sulfate 2.5 mg/3 mL 2.5 mg (3 mL) inhalation Q6HRT PRN 06/12/23 07/13/23 Rx (0.083 %) solution for nebulization Shortness Of Breath #75 mL amlodipine 10 mg tablet 10 mg BYMOUTH DAILY #0 tabs 06/12/23 07/13/23 Rx aspirin 81 mg chewable tablet [facility] DA[facility]0800 #0 tabs 06/12/23 07/13/23 Rx (Children's Aspirin) atorvastatin 40 mg tablet 40 mg BYMOUTH HS #0 tabs 06/12/23 07/13/23 Rx buspirone 10 mg tablet 10 mg PO DAILY #0 tabs 06/12/23 07/13/23 Rx docusate sodium 50 mg/5 mL oral 100 mg (10 mL) [facility] Q12HR PRN 06/12/23 07/13/23 Rx liquid Constipation #0 mL famotidine 20 mg tablet 20 mg [facility] Q12HR #0 tabs 06/12/23 07/13/23 Rx hydralazine 25 mg tablet 25 mg PO QID PRN systolic >150 #0 06/12/23 07/13/23 Rx tabs hydrochlorothiazide 25 mg tablet 25 mg BYMOUTH QAM #0 tabs 06/12/23 07/13/23 Rx ipratropium 0.5 mg-albuterol 3 mg 3 ml inhalation Q4HRT PRN 06/12/23 07/13/23 Rx (2.5 mg base)/3 mL nebulization Shortness Of Breath #0 mL soln lisinopril 5 mg tablet 5 mg PO QAM #0 tabs 06/12/23 07/13/23 Rx quetiapine 25 mg tablet (Seroquel) 25 mg BYMOUTH HS #0 tabs 06/12/23 07/13/23 Rx tamsulosin 0.4 mg capsule 0.4 mg PO QAM #0 caps 06/12/23 07/13/23 Rx trazodone 50 mg tablet 50 mg PO HS #0 tabs 06/12/23 07/13/23 Rx sertraline 50 mg tablet 50 mg PO DAILY #90 tabs 06/15/23 07/13/23 Rx apixaban 2.5 mg tablet 2.5 mg PO BID #180 tabs 06/21/23 07/13/23 Rx fluticasone propionate 50 1 spray intranasal BID #16 grams 06/21/23 07/13/23 Rx mcg/actuation nasal spray,suspension (Flonase Allergy Relief) mirtazapine 15 mg tablet 15 mg PO QHS #90 tabs 06/21/23 07/13/23 Rx polyethylene glycol 3350 17 17 g PO DAILY #510 grams 06/21/23 07/13/23 Rx gram/dose oral powder tramadol 50 mg tablet 50 mg PO Q8H PRN pain #90 tabs 06/28/23 07/13/23 Rx cephalexin 500 mg capsule 500 mg PO TID 7 days #21 caps 07/12/23 07/13/23 Rx umeclidinium 62.5 mcg/actuation 1 inh inhalation DAILY 07/13/23 07/13/23 Histor
[2023-07-14] VITALS (17 sets, daily range): BP systolic 99–126; BP diastolic 56–67; PULSE 60–66; RESP 12–20; TEMP 36.4–36.9; O2SAT 94–100
[2023-07-14 00:06] LABS: Basophils Absolute Auto 0.1 K/mm3 (0.0-0.1); Basophils Percent Auto 0.6 % (0.2-1.2); Eosinophils Absolute Auto 0.2 K/mm3 (0-0.3); Eosinophils Percent Auto 2.5 % (0-4.4); Hematocrit 34.7 % (42.0-52.0); Hemoglobin 11.2 g/dL (14.0-18.0); Immature Granulocyte Absolute 0.05 K/mm3 (0.00-0.031); Immature Granulocyte Percent A 0.6 % (0-0.5); Lymphocytes Percent Auto 13.8 % (18.3-44.2); Mean Corpuscular HGB Conc 32.3 g/dl (32-36); Mean Corpuscular Hemoglobin 28.5 pg (26-34); Mean Corpuscular Volume 88.3 fl (80-100); Mean Platelet Volume 8.8 fl (7.4-10.4); Monocytes Absolute Auto 0.7 K/mm3 (0.1-0.6); Monocytes Percent Auto 8.7 % (2.6-8.5); Neutrophils Absolute Auto 5.9 K/mm3 (1.3-6.7); Neutrophils Percent Auto 73.8 % (45.5-73.1); Platelet Count Result 265 k/mm3 (150-375); Red Blood Count 3.93 M/mm3 (4.6-6.20); Red Cell Distribution Width 14.6 % (11.5-14.5)
[2023-07-14 00:13] LABS: Alanine Aminotransferase 26 U/L (6-50); Albumin Level 3.8 g/dL (3.5-5.1); Alkaline Phosphatase 107 U/L (38-126); Anion Gap 9 mmol/L (8-16); Aspartate Amino Transferase 35 U/L (17-59); Bilirubin,Total 0.6 mg/dL (0.2-1.3); Blood Urea Nitrogen 17 mg/dL (9-20); Calcium 8.7 mg/dL (8.4-10.2); Carbon Dioxide 27 mmol/L (22-30); Chloride 98 mmol/L (98-107); Estimated CRCL calculation 69 ml/min; Estimated Glomerular Filt Rate > 60; Glucose 106 mg/dL (65-110); Magnesium 1.4 mg/dL (1.6-2.3); Potassium 3.4 mmol/L (3.4-5.0); Sodium 134 mmol/L (137-145)
[2023-07-14] MEDS: MORPHINE SULFATE (*CRX) 2 MG/ML INJ IV PUSH ×2 (00:13→12:18)
[2023-07-14] MEDS: LIDOCAINE HCL 2% GEL UROJET 10 ML PKG MUCOUS MEM ×2 (00:14→12:52)
[2023-07-14] MEDS: traZODone HCL 50 MG TABLET PO ×2 (01:39→20:06)
[2023-07-14] MEDS: ATORVASTATIN 40 MG TABLET BY MOUTH ×2 (01:39→20:05)
[2023-07-14] MEDS: QUEtiapine FUMARATE 25 MG TABLET BY MOUTH ×2 (01:40→20:05)
[2023-07-14] MEDS: HYOSCYAMINE SULFATE 0.125 MG TABLET PO (03:08)
[2023-07-14] MEDS: MORPHINE SULFATE (*CRX) 4 MG/ML INJ 2 MG IV PUSH ×2 (03:08→09:07)
--- NOTE | 2023-07-14 08:04 | WPDURCON ---
Assessment and Plan Assessment and plan (1) Gross hematuria: Code(s): R31.0 - Gross hematuria Status: Inactive Assessment and Plan: Intermittent gross hematuria of uncertain etiology CT the abdomen pelvis with contrast shows unremarkable renal cyst without other significant findings CT suggest BPH with a calculated prostate volume of 60gm Will plan cystoscopy with possible clot evacuation during this admission. Urology Consult Note HPI Date Seen: 07/14/23 Requesting Physician: Mk Anne MD Primary Care Provider: Gideon Johnson DO Consult Narrative Narrative: Miles Escamilla is a 72 year old male, previously seen in our practice for a transient PSA elevation but not since 2017, transferred from [facility] Emergency Department with intermittent hematuria. Patient is a resident of a halfway and was seen at that ER 3 days ago with scant hematuria. He was treated with a an antibiotic for presumed urinary tract infection and a Morel catheter was placed. Urinalysis on that date ( 07/11/2023) was nitrate positive with greater than 100 white blood cells. Urine culture, however, has shown no significant growth. He re-presented last night with concerns over intermittent scant hematuria in his catheter bag. A 3 way catheter was placed, continuous irrigation was started he was transferred here. Has no prior known history of recurrent urinary tract infection urolithiasis or malignancies. CT scan the abdomen pelvis with contrast shows bilateral simple renal cysts without other significant upper urinary tract findings. His prostate appears enlarged with a possible median lobe protruding into the bladder. Review of Systems Review of Systems: ROS unobtainable: Yes unobtainable due to mental status PMFSH Past Medical History Medical History (Updated 07/14/23 @ 00:00 by Background Daemon) Atrial fibrillation Chronic pain Constipation by delayed colonic transit COPD (chronic obstructive pulmonary disease) CVA, old, cognitive deficits Depression GERD (gastroesophageal reflux disease) Hyperlipidemia Hypertension Stroke Social History Social History Smoking packs per day: 1 Smoking cigarettes per day: 20.0 Years smoked: 40 Smoking pack-years: 40.00 Smoking status: Former smoker Tobacco type: cigarettes Second hand tobacco smoke exposure: Yes Smoking end date: 10/07/16 Alcohol intake: current Drinks per week: 3 Substance use: never Lack of Transportation: No Lack of Food: Never True Current Housing: I Have Housing Concerned About Future Housing: No Difficulty Paying Gas/Electric Bills: No Difficulty Paying for Meds: No Currently Unemployed: No Education: High School Diploma/GED Difficulty w/ Childcare or Family Care: No Spiritual care concerns: No Meds Home Medications and Allergies Home Medications Medication Instructions Recorded Confirmed Type cetirizine 10 mg tablet (Zyrtec) 10 mg PO DAILY 04/16/23 07/14/23 History fluticasone fur. 100 mcg-umeclid 1 inh inhalation BID 04/16/23 07/14/23 History 62.5 mcg-vilant 25 mcg inhalat.powder (Trelegy Ellipta) acetaminophen 325 mg tablet (Mapap 650 mg BYMOUTH Q4H PRN Mild Pain 06/12/23 07/14/23 Rx (acetaminophen)) (1-3) Or Fever #0 tabs albuterol sulfate 2.5 mg/3 mL 2.5 mg (3 mL) inhalation Q6HRT PRN 06/12/23 07/14/23 Rx (0.083 %) solution for nebulization Shortness Of Breath #75 mL amlodipine 10 mg tablet 10 mg BYMOUTH DAILY #0 tabs 06/12/23 07/14/23 Rx atorvastatin 40 mg tablet 40 mg BYMOUTH HS #0 tabs 06/12/23 07/14/23 Rx buspirone 10 mg tablet 10 mg PO DAILY #0 tabs 06/12/23 07/14/23 Rx docusate sodium 50 mg/5 mL oral 100 mg (10 mL) BYMOUTH Q12HR PRN 06/12/23 07/14/23 Rx liquid Constipation #0 mL famotidine 20 mg tablet 20 mg BYMOUTH Q12HR #0 tabs 06/12/23 07/14/23 Rx hydralazine 25 mg tablet 25 mg PO QID PRN systolic >150
[2023-07-14] MEDS: FLUTICASONE/UMECLIDIN/VILANTER 200-62.5-25 MCG ELLIPTA 1 PUFF INHALATION (09:52)
--- NOTE | 2023-07-14 10:40 | PC.NURSE ---
Patient to OR per bed at 1040.
[2023-07-14] MEDS: LACTATED RINGERS 1,000 ML 30 ML IV CONT (11:00)
--- NOTE | 2023-07-14 12:19 | WPDANESEPPF ---
Anes - Initial Pre Proc Eval Procedure: Operation Date: 07/14/23 13:30 Proposed Procedures p Cystoscopy, Possible Clot Evacuation - Juan Jose Morgan MD Date/Time: 07/14/23 12:19 Surgeon: Mk Anne MD Pre Op Diagnosis: GROSS HEMATURIA ABNORMAL L CT OF BLADDER Patient Data Age: 72 Gender: M Height: 1.85 m Weight: 76.3 kg Last Vital Signs Temp 36.9 C 07/14/23 05:08 Pulse 64 07/14/23 05:08 Resp 18 07/14/23 05:08 BP 126/58 L 07/14/23 05:08 Pulse Ox 95 07/14/23 08:00 O2 Del Method Nasal Cannula 07/14/23 08:00 O2 Flow Rate 2 07/14/23 08:00 Allergies Allergy/AdvReac Type Severity Reaction Status Date / Time No Known Allergies Allergy Verified 07/14/23 11:03 Home Medications Medication Instructions Recorded Confirmed Type cetirizine 10 mg tablet (Zyrtec) 10 mg PO DAILY 04/16/23 07/14/23 History fluticasone fur. 100 mcg-umeclid 1 inh inhalation BID 04/16/23 07/14/23 History 62.5 mcg-vilant 25 mcg inhalat.powder (Trelegy Ellipta) acetaminophen 325 mg tablet (Mapap 650 mg BYMOUTH Q4H PRN Mild Pain 06/12/23 07/14/23 Rx (acetaminophen)) (1-3) Or Fever #0 tabs albuterol sulfate 2.5 mg/3 mL 2.5 mg (3 mL) inhalation Q6HRT PRN 06/12/23 07/14/23 Rx (0.083 %) solution for nebulization Shortness Of Breath #75 mL amlodipine 10 mg tablet 10 mg BYMOUTH DAILY #0 tabs 06/12/23 07/14/23 Rx atorvastatin 40 mg tablet 40 mg BYMOUTH HS #0 tabs 06/12/23 07/14/23 Rx buspirone 10 mg tablet 10 mg PO DAILY #0 tabs 06/12/23 07/14/23 Rx docusate sodium 50 mg/5 mL oral 100 mg (10 mL) BYMOUTH Q12HR PRN 06/12/23 07/14/23 Rx liquid Constipation #0 mL famotidine 20 mg tablet 20 mg BYMOUTH Q12HR #0 tabs 06/12/23 07/14/23 Rx hydralazine 25 mg tablet 25 mg PO QID PRN systolic >150 #0 06/12/23 07/14/23 Rx tabs hydrochlorothiazide 25 mg tablet 25 mg BYMOUTH QAM #0 tabs 06/12/23 07/14/23 Rx ipratropium 0.5 mg-albuterol 3 mg 3 ml inhalation Q4HRT PRN 06/12/23 07/14/23 Rx (2.5 mg base)/3 mL nebulization Shortness Of Breath #0 mL soln lisinopril 5 mg tablet 5 mg PO QAM #0 tabs 06/12/23 07/14/23 Rx quetiapine 25 mg tablet (Seroquel) 25 mg BYMOUTH HS #0 tabs 06/12/23 07/14/23 Rx tamsulosin 0.4 mg capsule 0.4 mg PO QAM #0 caps 06/12/23 07/14/23 Rx trazodone 50 mg tablet 50 mg PO HS #0 tabs 06/12/23 07/14/23 Rx sertraline 50 mg tablet 50 mg PO DAILY #90 tabs 06/15/23 07/14/23 Rx apixaban 2.5 mg tablet 2.5 mg PO BID #180 tabs 06/21/23 07/14/23 Rx fluticasone propionate 50 1 spray intranasal BID #16 grams 06/21/23 07/14/23 Rx mcg/actuation nasal spray,suspension (Flonase Allergy Relief) mirtazapine 15 mg tablet 15 mg PO QHS #90 tabs 06/21/23 07/14/23 Rx polyethylene glycol 3350 17 17 g PO DAILY #510 grams 06/21/23 07/14/23 Rx gram/dose oral powder tramadol 50 mg tablet 50 mg PO Q8H PRN pain #90 tabs 06/28/23 07/14/23 Rx cephalexin 500 mg capsule 500 mg PO TID 7 days #21 caps 07/12/23 07/14/23 Rx umeclidinium 62.5 mcg/actuation 1 inh inhalation DAILY 07/13/23 07/14/23 History blister powder for inhalation (Incruse Ellipta) Laboratory Tests 07/13/23 23:54 WBC 8.0 K/mm3 (4.5-10.0) RBC 3.93 L M/mm3 (4.6-6.20) Hgb 11.2 L g/dL (14.0-18.0) Hct 34.7 L % (42.0-52.0) MCV 88.3 fl (80-100) MCH 28.5 pg (26-34) MCHC 32.3 g/dl (32-36) RDW 14.6 H % (11.5-14.5) Plt Count 265 k/mm3 (150-375) MPV 8.8 fl (7.4-10.4) Immature Gran % (Auto) 0.6 H % (0-0.5) Neut % (Auto) 73.8 H % (45.5-73.1) Lymph % (Auto) 13.8 L % (18.3-44.2) [place] % (Auto) 8.7 H % (2.6-8.5) Eos % (Auto) 2.5 % (0-4.4) Baso % (Auto) 0.6 % (0.2-1.2) Lymph # (Auto) 1.10 K/mm3 (0.9-3.2) [place] # (Auto) 0.7 H K/mm3 (0.1-0.6) Eos # (Auto) 0.2 K/mm3 (0-0.3) Baso # (Auto) 0.1 K/mm3 (0.0-0.1) Abs Immat Gran (auto) 0.05 H K/mm3 (0.00-0.031) Absolute Neuts (auto) 5.9 K/mm3 (1.3-6.7) Absolute Nucleated RBC 0.0
--- NOTE | 2023-07-14 12:23 | WPDHPUPDATE1 ---
History and Physical Update Update Date/Time: 07/14/23 12:23 History and Physical has been reviewed, including an updated exam of the patient. There are NO changes in the patient's condition. Risks, benefits, and alternatives have been discussed and questions answered. Patient agrees to proceed with procedure.
[2023-07-14] MEDS: MAGNESIUM SULF 4 GM/WATER100ML 4 GM/100 ML BAG IVPB (12:42)
--- NOTE | 2023-07-14 13:10 | W.PM.PROC2 ---
Procedure Note - Detailed Date of Procedure 07/14/23 Pre-op Diagnosis GROSS HEMATURIA ABNORMAL L CT OF BLADDER Post-op Diagnosis Other (1. Small, 2cm papillary neoplasm right post-lat. wall. 2. BPH with median lobe 3. Bladder clots 4. Spastic bladder) Procedure Performed Cystoscopy, clot evacuation, TURBT (small, 2cm) Surgeon Juan Joes Morgan MD Anesthesia General Description of Procedure patient is brought to the operative suite prepped draped in routine sterile fashion while in dorsal lithotomy position. 2% xylocaine jelly introduced intraurethrally and systemic sedation is administered per the anesthesia department. Cystoscopy is undertaken 1st a 21 F rigid cystoscope in later a 27 F resectoscope. He has marked lateral lobe hyperplasia with a moderate-sized median lobe protruding into the bladder. He has moderate amount of dependent clot, some of which appears very old and organized, that is evacuated with a Janis syringe. He has a very spastic bladder which makes inspection a bit difficult. His bladder is very trabeculated with some cellule and diverticular formation. I did find a single papillary neoplasm in the right posterior lateral bladder wall. I resected that area with an attempt made to into to detrusor muscle for pathological evaluation invasion. The base and periphery was cauterized with a rollerball electrode. This was all done with care to avoid injury to the ureteral orifice ease. Because the patient has marked bladder spasticity opted to leave a catheter out. Drains No Packing No Pathology Yes Condition Stable Disposition PACU
[2023-07-14] MEDS: amLODIPine BESYLATE 5 MG TABLET 10 MG BY MOUTH (14:27)
[2023-07-14] MEDS: FAMOTIDINE 20 MG TABLET BY MOUTH ×2 (14:27→20:05)
[2023-07-14] MEDS: hydroCHLOROthiazide 25 MG TABLET BY MOUTH (14:27)
[2023-07-14] MEDS: LORATADINE 10 MG TABLET PO (14:27)
[2023-07-14] MEDS: SERTRALINE HCL 50 MG TABLET PO (14:27)
[2023-07-14] MEDS: polyethylene glycoL 3350 17 GM POWD.PACK PO (14:27)
[2023-07-14] MEDS: TAMSULOSIN HCL 0.4 MG CAPSULE PO (14:27)
[2023-07-14] MEDS: lisinopriL 5 MG TABLET PO (14:28)
[2023-07-14] MEDS: busPIRone HCL 10 MG TABLET PO (14:28)
[2023-07-14] MEDS: FLUTICASONE PROPIONATE 0.05% NA SPR 16 GM BTL (*BKC) 1 SPRAY NASAL (14:32)
[2023-07-14] MEDS: FINASTERIDE 5 MG TABLET PO (14:34)
--- NOTE | 2023-07-14 15:15 | PM.IMPN ---
Progress Note: A&P Assessment and Plan (1) Gross hematuria: Code(s): R31.0 - Gross hematuria Status: Inactive Assessment and Plan: Patient transferred here from [facility] ER for evaluation of hematuria Morel insertion with CBI irrigation ordered Urology evaluation in a.m. for evaluation and treatment recommendations Hold off of aspirin, NSAIDs and anticoagulation Keep patient NPO except meds after midnight Labs ordered on the floor which will be monitored closely (2) COPD (chronic obstructive pulmonary disease): Qualifiers: COPD type: unspecified COPD Qualified Code(s): J44.9 - Chronic obstructive pulmonary disease, unspecified Code(s): J44.9 - Chronic obstructive pulmonary disease, unspecified Status: Acute Assessment and Plan: Stable Continue home medications Trend respiratory status (3) Hypertension: Qualifiers: Hypertension type: primary hypertension Qualified Code(s): I10 - Essential (primary) hypertension Code(s): I10 - Essential (primary) hypertension Status: Acute Assessment and Plan: BP 114/67 Continue home medications trend BP Adjust therapy as indicated (4) Hyperlipidemia: Qualifiers: Hyperlipidemia type: mixed hyperlipidemia Qualified Code(s): E78.2 - Mixed hyperlipidemia Code(s): E78.5 - Hyperlipidemia, unspecified Status: Acute Assessment and Plan: Continue statin medications (5) GERD (gastroesophageal reflux disease): Code(s): K21.9 - Gastro-esophageal reflux disease without esophagitis Status: Acute Assessment and Plan: Stable (6) Depression: Code(s): F32.A - Depression, unspecified Status: Acute Assessment and Plan: Continue home medications (7) Chronic pain: Code(s): G89.29 - Other chronic pain Status: Acute Assessment and Plan: Continue home medications trend pain scores (8) Seasonal allergies: Code(s): J30.2 - Other seasonal allergic rhinitis Status: Acute Assessment and Plan: Continue home medications Time Spent With Patient Time: 48 minutes Time with patient: Greater than 35 minutes Subjective Date/time seen: 07/14/231529 Interval history: 07/14/231529 Patient is doing well he does appear to be drowsy he denies any current, chest pain, shortness a breath, nausea, vomiting diarrhea, constipation. Patient should be able to discharge tomorrow. Patient's family was in the room and he was okay with me talking about of them. 07/13/23? 23:20 He is a very pleasant gentleman? with chronic multiple medical issues, who was admitted in [facility] with falls.? He was transferred to rehab where a Morel was placed.? The nurse in the rehab noticed blood in the Morel and the patient was sent to the ER for evaluation, back at [facility], who? reached out to our hospital for direct admission and transfer for urological evaluation.? I saw and evaluated the patient at the bedside? upon arrival.? He is not actively bleeding anymore but concerned about? having recurrent bleeding.? We will start CBI,? order labs and monitor him closely on the floor.? He will be evaluated by Urology in the morning. Review of Systems Review of Systems: All systems reviewed & are unremarkable except as noted in HPI and below Exam Narrative: General: well-nourished, tired-appearing 72-year-old male, laying in bed, comfortable, NARD Neuro: awake, alert and oriented x4, speech clear, no focal neuro deficits noted HEENMT: normocephalic, atraumatic, EOMI, sclerae anicteric, moist oral mucosa Respiratory: Clear to auscultation bilaterally without crackles, rhonchi or wheezes, nonlabored breathing Cardio: regular rate, regular rhythm with S1-S2 Abdomen: nondistended, normoactive bowel sounds, soft, nontender to palpation Extremities: no chay
[2023-07-14] MEDS: MIRTAZAPINE 15 MG TABLET PO (20:05)
[2023-07-15] VITALS: BP 132/66; PULSE 66; RESP 18; TEMP 36.5; O2SAT 93
[2023-07-15 00:11] LABS: Basophils Percent Auto 0.5 % (0.2-1.2); Eosinophils Absolute Auto 0.3 K/mm3 (0-0.3); Hemoglobin 10.5 g/dL (14.0-18.0); Immature Granulocyte Absolute 0.03 K/mm3 (0.00-0.031); Immature Granulocyte Percent A 0.5 % (0-0.5); Lymphocytes Absolute Auto 0.98 K/mm3 (0.9-3.2); Lymphocytes Percent Auto 14.9 % (18.3-44.2); Mean Corpuscular HGB Conc 32.8 g/dl (32-36); Mean Corpuscular Hemoglobin 28.7 pg (26-34); Mean Corpuscular Volume 87.4 fl (80-100); Mean Platelet Volume 8.6 fl (7.4-10.4); Monocytes Absolute Auto 0.7 K/mm3 (0.1-0.6); Monocytes Percent Auto 10.3 % (2.6-8.5); Neutrophils Absolute Auto 4.6 K/mm3 (1.3-6.7); Neutrophils Percent Auto 69.8 % (45.5-73.1); Platelet Count Result 235 k/mm3 (150-375); Red Blood Count 3.66 M/mm3 (4.6-6.20); Red Cell Distribution Width 14.6 % (11.5-14.5); White Blood Count 6.6 K/mm3 (4.5-10.0)
[2023-07-15 00:52] LABS: Alanine Aminotransferase 22 U/L (6-50); Albumin Level 3.3 g/dL (3.5-5.1); Alkaline Phosphatase 95 U/L (38-126); Anion Gap 2 mmol/L (8-16); Aspartate Amino Transferase 28 U/L (17-59); Bilirubin,Total 0.6 mg/dL (0.2-1.3); Blood Urea Nitrogen 8 mg/dL (9-20); Calcium 8.9 mg/dL (8.4-10.2); Carbon Dioxide 32 mmol/L (22-30); Chloride 100 mmol/L (98-107); Estimated CRCL calculation 101 ml/min; Estimated Glomerular Filt Rate > 60; Glucose 96 mg/dL (65-110); Potassium 3.3 mmol/L (3.4-5.0); Sodium 134 mmol/L (137-145)
[2023-07-15 04:04] VITALS: BP 122/68; PULSE 71; RESP 20; TEMP 36.8; O2SAT 95
[2023-07-15] MEDS: MORPHINE SULFATE (*CRX) 4 MG/ML INJ 2 MG IV PUSH (07:49)
[2023-07-15] MEDS: FLUTICASONE/UMECLIDIN/VILANTER 200-62.5-25 MCG ELLIPTA 1 PUFF INHALATION (07:55)
[2023-07-15 07:58] VITALS: O2SAT 92
[2023-07-15] MEDS: polyethylene glycoL 3350 17 GM POWD.PACK PO (08:01)
[2023-07-15] MEDS: LORATADINE 10 MG TABLET PO (08:01)
[2023-07-15] MEDS: FINASTERIDE 5 MG TABLET PO (08:02)
[2023-07-15] MEDS: lisinopriL 5 MG TABLET PO (08:02)
[2023-07-15] MEDS: hydroCHLOROthiazide 25 MG TABLET BY MOUTH (08:02)
[2023-07-15] MEDS: POTASSIUM CHLORIDE 20 MEQ ER TABLET 40 MEQ PO (08:02)
[2023-07-15] MEDS: FAMOTIDINE 20 MG TABLET BY MOUTH (08:02)
[2023-07-15] MEDS: amLODIPine BESYLATE 5 MG TABLET 10 MG BY MOUTH (08:02)
[2023-07-15] MEDS: TAMSULOSIN HCL 0.4 MG CAPSULE PO (08:02)
[2023-07-15] MEDS: SERTRALINE HCL 50 MG TABLET PO (08:02)
[2023-07-15] MEDS: busPIRone HCL 10 MG TABLET PO (08:02)
[2023-07-15] MEDS: FLUTICASONE PROPIONATE 0.05% NA SPR 16 GM BTL (*BKC) 1 SPRAY NASAL (08:03)
--- NOTE | 2023-07-15 09:55 | P.DS_ITS ---
DS: Admitting Diagnosis Discharge Date 07/15/2023 Admitting Diagnosis Hematuria DS: Discharge Diagnosis Discharge Diagnosis (1) Gross hematuria: Code(s): R31.0 - Gross hematuria Status: Inactive Assessment and Plan: * Patient transferred here from [facility] ER for evaluation of hematuria * Morel insertion with CBI irrigation ordered * Urology evaluation in a.m. for evaluation and treatment recommendations * Hold off of aspirin, NSAIDs and anticoagulation * Keep patient NPO except meds after midnight * Labs ordered on the floor which will be monitored closely (2) COPD (chronic obstructive pulmonary disease): Qualifiers: COPD type: unspecified COPD Qualified Code(s): J44.9 - Chronic obstructive pulmonary disease, unspecified Code(s): J44.9 - Chronic obstructive pulmonary disease, unspecified Status: Acute Assessment and Plan: * Stable * Continue home medications * Trend respiratory status (3) Hypertension: Qualifiers: Hypertension type: primary hypertension Qualified Code(s): I10 - Essential (primary) hypertension Code(s): I10 - Essential (primary) hypertension Status: Acute Assessment and Plan: * BP 114/67 * Continue home medications * trend BP * Adjust therapy as indicated (4) Hyperlipidemia: Qualifiers: Hyperlipidemia type: mixed hyperlipidemia Qualified Code(s): E78.2 - Mixed hyperlipidemia Code(s): E78.5 - Hyperlipidemia, unspecified Status: Acute Assessment and Plan: * Continue statin medications (5) GERD (gastroesophageal reflux disease): Code(s): K21.9 - Gastro-esophageal reflux disease without esophagitis Status: Acute Assessment and Plan: * Stable (6) Depression: Code(s): F32.A - Depression, unspecified Status: Acute Assessment and Plan: * Continue home medications (7) Chronic pain: Code(s): G89.29 - Other chronic pain Status: Acute Assessment and Plan: * Continue home medications * trend pain scores (8) Seasonal allergies: Code(s): J30.2 - Other seasonal allergic rhinitis Status: Acute Assessment and Plan: * Continue home medications DS: Summary Hospital Course Reason for hospitalization: Hematuria Hospital Course: He is a very pleasant gentleman? with chronic multiple medical issues, who was admitted in [facility] with falls.? He was transferred to rehab where a Morel was placed.? The nurse in the rehab noticed blood in the Morel and the patient was sent to the ER for evaluation, back at [facility], who? reached out to our hospital for direct admission and transfer for urological evaluation. Patient was started on CBI and monitored him closely on the floor.? He will be evaluated by Urology in the morning. Today patient is feeling better and was discharged to rehab in stable condition. Status at Discharge Cognitive/behavioral status at discharge: Stable Time Spent with Patient Time attestation: Total time spent providing and/or coordinating discharge services: Exam Narrative: General: well-nourished, tired-appearing 72-year-old male, laying in bed, comfortable, NARD Neuro: awake, alert and oriented x4, speech clear, no focal neuro deficits noted HEENMT: normocephalic, atraumatic, EOMI, sclerae anicteric, moist oral mucosa Respirato
--- NOTE | 2023-07-15 09:55 | PM.DS ---
DS: Admitting Diagnosis Discharge Date 07/15/2023 Admitting Diagnosis Hematuria DS: Discharge Diagnosis Discharge Diagnosis (1) Gross hematuria: Code(s): R31.0 - Gross hematuria Status: Inactive Assessment and Plan: Patient transferred here from [facility] ER for evaluation of hematuria Morel insertion with CBI irrigation ordered Urology evaluation in a.m. for evaluation and treatment recommendations Hold off of aspirin, NSAIDs and anticoagulation Keep patient NPO except meds after midnight Labs ordered on the floor which will be monitored closely (2) COPD (chronic obstructive pulmonary disease): Qualifiers: COPD type: unspecified COPD Qualified Code(s): J44.9 - Chronic obstructive pulmonary disease, unspecified Code(s): J44.9 - Chronic obstructive pulmonary disease, unspecified Status: Acute Assessment and Plan: Stable Continue home medications Trend respiratory status (3) Hypertension: Qualifiers: Hypertension type: primary hypertension Qualified Code(s): I10 - Essential (primary) hypertension Code(s): I10 - Essential (primary) hypertension Status: Acute Assessment and Plan: BP 114/67 Continue home medications trend BP Adjust therapy as indicated (4) Hyperlipidemia: Qualifiers: Hyperlipidemia type: mixed hyperlipidemia Qualified Code(s): E78.2 - Mixed hyperlipidemia Code(s): E78.5 - Hyperlipidemia, unspecified Status: Acute Assessment and Plan: Continue statin medications (5) GERD (gastroesophageal reflux disease): Code(s): K21.9 - Gastro-esophageal reflux disease without esophagitis Status: Acute Assessment and Plan: Stable (6) Depression: Code(s): F32.A - Depression, unspecified Status: Acute Assessment and Plan: Continue home medications (7) Chronic pain: Code(s): G89.29 - Other chronic pain Status: Acute Assessment and Plan: Continue home medications trend pain scores (8) Seasonal allergies: Code(s): J30.2 - Other seasonal allergic rhinitis Status: Acute Assessment and Plan: Continue home medications DS: Summary Hospital Course Reason for hospitalization: Hematuria Hospital Course: He is a very pleasant gentleman? with chronic multiple medical issues, who was admitted in [facility] with falls.? He was transferred to rehab where a Morel was placed.? The nurse in the rehab noticed blood in the Morel and the patient was sent to the ER for evaluation, back at [facility], who? reached out to our hospital for direct admission and transfer for urological evaluation. Patient was started on CBI and monitored him closely on the floor.? He will be evaluated by Urology in the morning. Today patient is feeling better and was discharged to rehab in stable condition. Status at Discharge Cognitive/behavioral status at discharge: Stable Time Spent with Patient Time attestation: Total time spent providing and/or coordinating discharge services: Exam Narrative: General: well-nourished, tired-appearing 72-year-old male, laying in bed, comfortable, NARD Neuro: awake, alert and oriented x4, speech clear, no focal neuro deficits noted HEENMT: normocephalic, atraumatic, EOMI, sclerae anicteric, moist oral mucosa Respiratory: Clear to auscultation bilaterally without crackles, rhonchi or wheezes, nonlabored breathing Cardio: regular rate, regular rhythm with S1-S2 Abdomen: nondistended, normoactive bowel sounds, soft, nontender to palpation Extremities: no edema, erythema, or tenderness to palpation, DP pulses 2+ bilaterally Skin: no rashes or lesions, warm and dry Psych: appropriate mood and affect, judgment and insight intact DS: Data Data Completed and Pending Pending studies at discharge: Pending at discharge 07/14/23 13:08
[2023-07-15 10:10] VITALS: BP 112/68; PULSE 62; RESP 18; TEMP 36.6; O2SAT 96
--- NOTE | 2023-07-15 13:52 | WPDANESPN ---
Anes - Prog Note Post-Op Date/Time: 07/15/23 13:52 Cardiovascular status: normal Respiratory status: normal Airway patency: baseline Mental status: other (pt verbalized having hallucinations last evening, states saw his parents and brother. was tearful. pt states further hallucinations this am. ) Post-Op hydration status: normal Vital Signs: Last Vital Signs Temp 98 F 07/15/23 10:10 Pulse 62 07/15/23 10:10 Resp 18 07/15/23 10:10 BP 112/68 07/15/23 10:10 Pulse Ox 96 07/15/23 10:10 O2 Del Method Room Air 07/15/23 08:00 O2 Flow Rate 1 07/14/23 17:52 Pain Score (VAS): 0 I/O: Intake & Output 07/14/23 07/15/23 07/15/23 23:59 07:59 15:59 Intake Total 360 250 530 Output Total 150 1400 Balance 210 -1150 530 Laboratory Tests 07/15/23 00:04 07/15/23 00:04 07/15/23 00:04 WBC 6.6 RBC 3.66 L Hgb 10.5 L Hct 32.0 L MCV 87.4 MCH 28.7 MCHC 32.8 RDW 14.6 H Plt Count 235 MPV 8.6 Immature Gran % (Auto) 0.5 Neut % (Auto) 69.8 Lymph % (Auto) 14.9 L [place] % (Auto) 10.3 H Eos % (Auto) 4.0 Baso % (Auto) 0.5 Lymph # (Auto) 0.98 [place] # (Auto) 0.7 H Eos # (Auto) 0.3 Baso # (Auto) 0.0 Abs Immat Gran (auto) 0.03 Absolute Neuts (auto) 4.6 Absolute Nucleated RBC 0.0 Nucleated RBC % 0.0 Sodium 134 L Potassium 3.3 L Chloride 100 Carbon Dioxide 32 H Anion Gap 2 L BUN 8 L D Creatinine 0.60 L Estim Creat Clear Calc 101 Estimated GFR > 60 Glucose 96 Calcium 8.9 Total Bilirubin 0.6 AST 28 ALT 22 Alkaline Phosphatase 95 Total Protein 6.0 L Albumin 3.3 L Post-procedural complaints: none Patient Feedback: Patient satisfied with anesthetic care.
== END 2023-07-15 15:20 | DRG 670 ==
PROVIDERS: Urology; Admitting Provider Family Medicine; PCP Family Medicine; Visit Provider Internal Medicine
PROC: 0TCB8ZZ Extirpation of Matter from Bladder, Via Natural or Artificial Opening Endoscopic (ICD-10-PCS; CPT 52001; principal; 2023-07-14 13:30)
DX: C67.9 Malignant neoplasm of bladder, unspecified (principal); R31.0 Gross hematuria; N40.0 Benign prostatic hyperplasia without lower urinary tract symptoms; N32.89 Other specified disorders of bladder; E78.2 Mixed hyperlipidemia; F32.A Depression, unspecified; G89.29 Other chronic pain; I48.91 Unspecified atrial fibrillation; I69.319 Unspecified symptoms and signs involving cognitive functions following cerebral infarction; I10 Essential (primary) hypertension; J44.9 Chronic obstructive pulmonary disease, unspecified; K21.9 Gastro-esophageal reflux disease without esophagitis; M54.9 Dorsalgia, unspecified; Z87.891 Personal history of nicotine dependence
CPT/HCPCS: 36415; 80053; 83735; 84100; 85025; 88305; 94640; A9270; J0696; J2270; J2704; J3010; J3475; J7120

== ENCOUNTER 2023-10-28 06:58 | Emergency (ER) | payer MEDICARE, SELFPAY ==
[2023-10-28] VITALS (20 sets, daily range): BP systolic 93–125; BP diastolic 56–81; PULSE 60–89; RESP 14–20; TEMP 36.5–37.2; O2SAT 90–98
--- NOTE | ~2023-10-28 | CT_ITS ---
Noncontrast CT scan of the lumbar spine CLINICAL HISTORY: Back pain TECHNIQUE: Axial noncontrast imaging of the lumbar spine was performed. Sagittal and coronal reformat missy images were constructed. Dose reduction technique was used on this scan by utilizing automated ex posure control and iterative reconstruction technique. The dose-length product (DLP) was 1446.70 mGy- cm. FINDINGS: There is no fracture or subluxation of the lumbar spine. Vertebral bodies maintain normal h eight and alignment. There is mild degenerative disc narrowing at L4-L5. At L1-L2, there is no significant disc bulge or herniation. There is mild facet arthropathy. No centr al canal stenosis or neural foraminal narrowing. At L2-L3, there is mild disc bulge and moderate to advanced facet arthropathy. There is possible mini mal central canal stenosis. There is moderate to severe right neural foraminal narrowing, advanced le ft neural foraminal narrowing. At L3-L4, there is mild disc bulge with moderate facet arthropathy. No gen central canal stenosis. There is moderate to severe bilateral neural foraminal narrowing, left worse than right. At L4-L5, there is mild disc bulge with moderate facet arthropathy. No central canal stenosis. There is severe bilateral neural foraminal narrowing. At L5-S1, there is no significant disc bulge or herniation. No spinal canal stenosis or neural forami nal narrowing. Paravertebral soft tissues demonstrate partially imaged right acetabular fracture. There is probable left basilar atelectatic change, partially imaged, versus possibly pneumonia. Aortic stent graft pres ent. Impression: Right acetabular fracture, partially imaged. Please refer to separately reported right hip CT for fur ther details. No fracture or subluxation of the lumbar spine. Moderate degenerative spondylosis, with bilateral neural foraminal narrowing at L2-L3, L3-L4, L4-L5. Please see details above. Reviewed, dictated and finalized at location M. R DISTRIBUTOR Impression: Right acetabular fracture, partially imaged. Please refer to separately reporte d right hip CT for further details. No fracture or subluxation of the lumbar spine. Moderate degenerative spondylosis, with bilateral neural foraminal narrowing at L2-L3, L3-L4, L4-L5. Please see details above.
--- NOTE | ~2023-10-28 | CT_ITS ---
Noncontrast CT scan of the right hip CLINICAL HISTORY: Pain technique: Axial noncontrast imaging of the right hip was performed. Sagittal and coronal reformatted images were constructed. Dose reduction technique was used on this scan by ut ilizing automated exposure control and iterative reconstruction technique. The dose-length product (D LP) was 436.37 mGy-cm. Findings: There is a highly comminuted acetabular fracture, involving the anteroinferior right iliac bone, anterior acetabulum, central portion of the acetabulum, and the posterior acetabulum. Most of t he fracture fragments are mildly displaced, with greatest displacement probably at the central acetab ulum with displacement approximately 1.5 cm. No femoral neck fracture identified. Pubic rami are inta ct on the right side. No dislocation evident. There is an apparent 7 mm hyperdense rounded structure at the posterior bladder, which could reflect bladder stone. No gross soft tissue abnormality evident otherwise. IMPRESSION: Complex, highly comminuted acetabular fracture, as detailed above, involving the entirety of the acet abulum and anteroinferior iliac bone. No femoral neck fracture. 7 mm presumed urinary bladder stone. Reviewed, dictated and finalized at location . WEIGHER IMPRESSION: Complex, highly comminuted acetabular fracture, as detailed above, involving th e entirety of the acetabulum and anteroinferior iliac bone. No femoral neck fracture. 7 mm presumed urinary bladder stone.
--- NOTE | ~2023-10-28 | XR_ITS ---
XR hip BI 2V w AP pelvis DATE: 10/28/2023 10:16 INDICATION: Hip pain TECHNIQUE: AP pelvis. AP and lateral views of each hip. COMPARISON: None FINDINGS: Abdominal aortic and iliac vascular stent. Osteopenia. The pubic symphysis and sacroiliac joints appear intact. There is a fracture through the right acetabulum. Additional pelvic ring fracture is not excluded. Co nsider CT pelvis examination. There is chronic prominent heterotopic calcification or ossification at the posterior left pelvic and hip area. No left hip fracture or dislocation is detected. No avascular necrosis or bone destruction of either hip is detected. IMPRESSION: Right acetabular fracture; additional pelvic ring fracture is not excluded. Consider CT p vinicius. Reviewed, dictated and finalized at location A. [employer] WORKER [employer]ODUCTION IMPRESSION: Right acetabular fracture; additional pelvic ring fracture is not e xcluded. Consider CT pelvis.
--- NOTE | ~2023-10-28 | XR_ITS ---
XR knee LT 3V DATE: 10/28/2023 10:16 INDICATION: Nontraumatic left knee pain TECHNIQUE: 3 views including crosstable lateral COMPARISON: None FINDINGS: There is evidence of mild suprapatellar knee joint effusion. There is prominent superior pole patellar enthesopathy at the quadriceps tendon insertion and entheso araceli patellar insertion of the patellar tendon. Osteopenia. There is mild loss of joint space at the medial compartment. No fracture or dislocation, periosteal r eaction or bone destruction of the left knee is detected. No radiopaque intra-articular loose body or chondrocalcinosis. There is arterial calcification. IMPRESSION: Mild suprapatellar knee joint effusion Osteopenia Mild loss of medial compartment joint space height Reviewed, dictated and finalized at location A. ANALYST
--- NOTE | ~2023-10-28 | XR_ITS ---
XR knee RT 3V DATE: 10/28/2023 10:16 INDICATION: Nontraumatic right knee pain TECHNIQUE: 3 views including crosstable lateral COMPARISON: None FINDINGS: Diffuse osteopenia. No knee joint effusion is evident. Mild superior pole patellar enthesop athy at the quadriceps tendon insertion. Mild periarticular spurring of the patellofemoral compartmen t, slight periarticular spurring of the medial tibial patella. Joint spaces are relatively preserved. No radiopaque intra-articular loose body or, calcinosis. No fracture or dislocation, periosteal reaction or bone destruction is detected. Arterial calcification. IMPRESSION: Mild osteoarthritis Osteopenia Reviewed, dictated and finalized at location A. ELING STOREKEEPER
--- NOTE | 2023-10-28 09:22 | ED.GENADULT ---
HPI - General Adult General Chief complaint: Unspecified Stated complaint: R hip pain Time Seen by Provider: 10/28/23 09:08 Source: patient, family and EMS Mode of arrival: EMS Limitations: no limitations History of Present Illness HPI narrative: 72 years old white male came from home by ambulance with severe hips pain and knees pain started last night. History of CVA with left hemiplegia, bed ridden, wheelchair ridden, does not use a walker or cane. Denies any trauma, fever, chills, nausea, vomiting, abdominal pain, chest pain, shortness of breath or back pain. Patient vomited once this morning current from pain. Related Data Home Medications Medication Instructions Recorded Confirmed acetaminophen 500 mg capsule 1,000 mg PO BID PRN 08/09/23 10/24/23 sertraline 100 mg tablet 100 mg PO DAILY 08/09/23 10/24/23 Allergies Allergy/AdvReac Type Severity Reaction Status Date / Time No Known Allergies Allergy Verified 10/24/23 13:01 Review of Systems Review of Systems: All systems reviewed & are unremarkable except as noted in HPI and below PMFSH Past Medical History Medical History Atrial fibrillation Chronic pain Constipation by delayed colonic transit COPD (chronic obstructive pulmonary disease) CVA, old, cognitive deficits Depression GERD (gastroesophageal reflux disease) Hemiparesis affecting left side as late effect of cerebrovascular accident History of stroke with residual effects Hyperlipidemia Hypertension Stroke Social History Social History Smoking packs per day: 1 Smoking cigarettes per day: 20.0 Years smoked: 40 Smoking pack-years: 40.00 Smoking status: Former smoker Tobacco type: cigarettes Second hand tobacco smoke exposure: Yes Smoking end date: 10/07/16 Alcohol intake: current Drinks per week: 3 Substance use: never Lack of Transportation: No Lack of Food: Never True Current Housing: I Have Housing Concerned About Future Housing: No Difficulty Paying Gas/Electric Bills: No Difficulty Paying for Meds: No Currently Unemployed: No Education: High School Diploma/GED Difficulty w/ Childcare or Family Care: No Spiritual care concerns: No Exam Narrative: General appearance: Well-developed, well-nourished Skin: Normal color Head: Normocephalic, nontraumatic Eyes: Clear conjunctiva ENT: Oropharynx normal, ears normal, nose normal Neck: Supple, nontender Chest and respiratory: Airway patent, no respiratory distress, no accessory muscle use Heart: Regular rate/rhythm Abdomen: Soft, nontender, no organomegaly, quiet bowel sounds Vascular: Normal peripheral pulses, normal capillary refill. Musculoskeletal: Severe limited range of motion of the hips and knees bilaterally, severe excruciating pain with flexion of anyone of the hips or the knees. No bruises, no swelling, no deformity, no rash Neurologic: Alert and oriented ?3, PHYS THERAPIST is normal as tested, no gross motor deficit Course Consultations Consultation #1: DR. TAYLOR TRANSFERRED TO [facility] Date: 10/28/23 Time: 13:19 Consultation #2: DR CARRERO, ORTHOPEDIC AT [facility] WAITING FOR CT SCAN OF THE PELVIS REPORT. Date: 10/28/23 Time: 14:43 Consultation #3: DR LEIVA, [facility] Date: 10/28/23 Time: 15:31 Vital Signs Vital signs: Vital Signs Temperature 37.2 C 10/28/23 07:02 Pulse Rate 81 10/28/23 07:02 Respiratory Rate 20 10/28/23 07:02 Blood Pressure 122/77 10/28/23 07:02 Pulse Oximetry 94 10/28/23 07:02 Oxygen Delivery Nasal Cannula 10/28/23 07:02 Oxyg
--- NOTE | 2023-10-28 09:24 | ECG_ITS ---
Measurements Intervals [place] Rate: 61 P: TN: 0 QRS: -78 QRSD: 155 T: 91 QT: 434 QTc: 439 Interpretive Statements ELECTRONIC VENTRICULAR PACEMAKER WITH INHIBITION UNDERLYING ATRIAL FLUTTER/TACHYCARDIA CONSIDER INFERIOR INFARCT, AGE INDETERMINATE BASELINE ARTIFACT- III, V3 NO FURTHER INTERPRETATION IS POSSIBLE ABNORMAL ECG COMPARED TO ECG 07/13/2023 17:11:11 NO SIGNIFICANT CHANGES Electronically Signed On 10-28-2023 13:44:11 ASSEMBLING INSPECTOR by Velasquez Nava D.O.
[2023-10-28 09:46] LABS: Basophils Absolute Auto 0.1 K/mm3 (0.0-0.1); Basophils Percent Auto 0.3 % (0.2-1.2); Eosinophils Percent Auto 0.1 % (0-4.4); Hematocrit 39.4 % (42.0-52.0); Hemoglobin 13.2 g/dL (14.0-18.0); Immature Granulocyte Absolute 0.11 K/mm3 (0.00-0.031); Immature Granulocyte Percent A 0.6 % (0-0.5); Lymphocytes Absolute Auto 1.02 K/mm3 (0.9-3.2); Mean Corpuscular HGB Conc 33.5 g/dl (32-36); Mean Corpuscular Volume 86.6 fl (80-100); Mean Platelet Volume 8.6 fl (7.4-10.4); Monocytes Absolute Auto 1.1 K/mm3 (0.1-0.6); Monocytes Percent Auto 6.7 % (2.6-8.5); Neutrophils Absolute Auto 14.7 K/mm3 (1.3-6.7); Neutrophils Percent Auto 86.3 % (45.5-73.1); Platelet Count Result 191 k/mm3 (150-375); Red Blood Count 4.55 M/mm3 (4.6-6.20); Red Cell Distribution Width 14.9 % (11.5-14.5)
[2023-10-28] MEDS: ONDANSETRON INJ 4 MG/2 ML VIAL IV PUSH (09:47)
[2023-10-28] MEDS: HYDROmorphone HCL INJ (*CRX) 1 MG/ML SYR 0.5 MG IV PUSH ×2 (09:47→13:36)
[2023-10-28 09:54] LABS: Alanine Aminotransferase 36 U/L (6-50); Albumin Level 4.2 g/dL (3.5-5.1); Alkaline Phosphatase 96 U/L (38-126); Anion Gap 9 mmol/L (8-16); Aspartate Amino Transferase 43 U/L (17-59); Blood Urea Nitrogen 15 mg/dL (9-20); Calcium 9.7 mg/dL (8.4-10.2); Carbon Dioxide 27 mmol/L (22-30); Chloride 98 mmol/L (98-107); Creatine Kinase 343 U/L (55-170); Estimated CRCL calculation 92 ml/min; Estimated Glomerular Filt Rate > 60; Glucose 132 mg/dL (65-110); Potassium 4.3 mmol/L (3.4-5.0); Sodium 134 mmol/L (137-145)
[2023-10-28 09:57] LABS: INR 1.2; Prothrombin Time 15.4 Seconds (11.1-14.7)
[2023-10-28 10:00] LABS: CRP 1.8 mg/dL (<1.0)
[2023-10-28 10:07] LABS: Appearance Urine Cloudy (Clear); Bacteria Urine 2+ /hpf; Bilirubin Urine Negative (Negative); Blood Urine Trace (Negative); Color Urine Yellow (Yellow); Glucose Urine UA Negative (Negative); Ketones Urine Trace mg/dL (Negative); Leukocyte Esterase Ur 2+ LEU/UL (Negative); Nitrate Urine Negative (Negative); Protein Urine 1+ mg/dL (Negative); RBC Urine 0-2 /hpf (0-2); Squamous Epithelial Cell Urine None seen /hpf (Few); Urobilinogen Urine 0.2 mg/dL (<2.0); WBC Urine >100 /hpf; pH Urine 5.5 (5.0-9.0)
[2023-10-28 10:17] LABS: Add Urine Microscopic? YES
[2023-10-28 10:50] LABS: Erythrocyte Sedimentation Rate 14 mm/hr (0-20)
[2023-10-28] MEDS: SODIUM CHLORIDE 0.9% IV 1,000 ML 999 ML IV CONT (16:18)
--- NOTE | 2023-10-28 18:08 | PC.NURSE ---
pt reports need to void bladder scan shower 267ml of urine pt attempted to void in urinal x 1 hr without any relief
== END 2023-10-28 18:09 | disposition short-term general hospital (02) ==
PROVIDERS: Emergency Provider Emergency Medicine; PCP Internal Medicine
DX: M84.459A Pathological fracture, hip, unspecified, initial encounter for fracture (principal); R82.998 Other abnormal findings in urine; I48.91 Unspecified atrial fibrillation; I10 Essential (primary) hypertension; I69.954 Hemiplegia and hemiparesis following unspecified cerebrovascular disease affecting left non-dominant side; J44.9 Chronic obstructive pulmonary disease, unspecified; E78.5 Hyperlipidemia, unspecified; K21.9 Gastro-esophageal reflux disease without esophagitis; Z95.0 Presence of cardiac pacemaker; Z87.891 Personal history of nicotine dependence; Z79.01 Long term (current) use of anticoagulants; R94.31 Abnormal electrocardiogram [ECG] [EKG]; M85.88 Other specified disorders of bone density and structure, other site; M17.11 Unilateral primary osteoarthritis, right knee; M47.816 Spondylosis without myelopathy or radiculopathy, lumbar region; Z74.01 Bed confinement status; Z99.3 Dependence on wheelchair
CPT/HCPCS: 36415; 72131; 73521; 73562; 73700; 80053; 81001; 82550; 85025; 85610; 85652; 86140; 87086; 87147; 87181; 87186; 93005; 96361; 96365; 96375; 96376; 99285; J0696; J1170; J2405; J7030